=== PATIENT | male | born 1980 ===

== ENCOUNTER 2017-04-18 23:36 | Observation (INO) | payer OTHER ==
[2017-04-19 00:04] VITALS: RESP 16; O2SAT 100
[2017-04-19 00:04] LABS: BASO # 0.1 K/uL (0.0-0.2); BASO % 0.5 % (0.0-2.0); EOS % 0.2 % (0.0-4.0); HEMATOCRIT 43.5 % (35.0-51.0); LYMPH # 2.6 K/uL (1.0-4.3); LYMPH % 12.6 % (20.0-40.0); MEAN CELL VOLUME 93.5 fl (80.0-94.0); MEAN CORPUSCULAR HEMOGLOBIN 30.8 pg (27.0-31.0); MEAN PLATELET VOLUME 8.2 fl (7.2-11.7); MONO # 1.2 K/uL (0.0-0.8); MONO % 5.8 % (0.0-10.0); NEUT # 16.4 K/uL (1.8-7.0); NEUT % 80.9 % (50.0-75.0); NRBC % 0.1 % (0.0-0.0); RED CELL DISTRIBUTION WIDTH 14.4 % (11.5-14.5)
[2017-04-19 00:13] LABS: ALB/GLOB RATIO 1.6 (1.0-2.1); ALCOHOL SERUM 172 mg/dl (0-10); ALKALINE PHOSPHATASE 85 U/L (38-126); ALT/SGPT 41 U/L (21-72); AST/SGOT 33 U/L (17-59); BILIRUBIN,TOTAL 0.5 mg/dl (0.2-1.3); BLOOD UREA NITROGEN 11 mg/dl (9-20); CALCIUM 9.5 mg/dL (8.4-10.2); CARBON DIOXIDE 20 mmol/L (22-30); CHLORIDE 103 mmol/L (98-107); GFR AFRICAN-AMERICAN > 60; GLUCOSE,RANDOM 79 mg/dL (75-110); POTASSIUM 3.6 MMOL/L (3.6-5.0); SODIUM 138 mmol/l (132-148); TOTAL PROTEIN 7.7 G/DL (6.3-8.2)
--- NOTE | 2017-04-19 00:30 | ED PDOC ---
HPI: Psych/Substance Abuse Time Seen by Provider: 04/18/17 23:46 Chief Complaint (Nursing): Psychiatric Evaluation Chief Complaint (Provider): Alcohol intoxication ED Caveat: Intoxicated History Per: Patient History/Exam Limitations: intoxication Onset/Duration Of Symptoms: Days (x 1) Current Symptoms Are (Timing): Still Present Additional History Per: EMS Additional Complaint(s): Katt is a 36 y/o male who was brought to the ED by EMS after being found publicly intoxicated. Patient admits to alcohol use, and has no further medical complaints at this time. PMD: Unknown Past Medical History Reviewed: Historical Data, Nursing Documentation, Vital Signs Vital Signs: Last Vital Signs Temp Pulse 85 04/19/17 00:03 Resp 16 04/19/17 00:03 BP 135/80 04/19/17 00:03 Pulse Ox 100 04/19/17 00:03 - Medical History PMH: Denies: Diabetes, Hepatitis, HIV, HTN, Seizures, Sexually Transmitted Disease - Family History Family History: States: Unknown Family Hx - Immunization History Hx Tetanus Toxoid Vaccination: Yes Hx Influenza Vaccination: No Hx Pneumococcal Vaccination: No - Home Medications Home Medications: Ambulatory Orders Medication Instructions Recorded No Known Home Med 09/11/15 - Allergies Allergies/Adverse Reactions: Allergies Allergy/AdvReac Type Severity Reaction Status Date / Time Penicillins Allergy RASH Verified 07/24/16 08:49 Review of Systems Review Of Systems: ROS cannot be obtained secondary to pt's inabilty to answer questions. Physical Exam - Reviewed Nursing Documentation Reviewed: Yes Vital Signs Reviewed: Yes - Physical Exam Appears: Positive for: Non-toxic, No Acute Distress Head Exam: Positive for: ATRAUMATIC, NORMAL INSPECTION, NORMOCEPHALIC Skin: Positive for: Normal Color, Warm, Dry Eye Exam: Positive for: EOMI, Normal appearance, PERRL Neck: Positive for: Normal, Painless ROM, Supple Cardiovascular/Chest: Positive for: Regular Rate, Rhythm. Negative for: Murmur Respiratory: Positive for: Normal Breath Sounds. Negative for: Accessory Muscle Use, Respiratory Distress Gastrointestinal/Abdominal: Positive for: Normal Exam, Soft. Negative for: Tenderness Back: Positive for: Normal Inspection. Negative for: L CVA Tenderness, R CVA Tenderness, Vertebral Tenderness Extremity: Positive for: Normal ROM. Negative for: Deformity Neurologic/Psych: Positive for: Oriented (x 1), Mood/Affect (Colorful), Other ( speech is slurred) - Laboratory Results Result Diagrams: 04/18/17 23:58 04/18/17 23:58 - ECG O2 Sat by Pulse Oximetry: 100 (RA) Pulse Ox Interpretation: Normal - Critical Care Total Time (In Min): 30 Medical Decision Making Medical Decision Making: Time: 23:46 Initial Impression: 36 y/o intoxicated male Initial Plan: --Accucheck --CBC --CMP --Urine drug screen --Alcohol serum --Urine dipstick --Patient uncooperative and agitated in the ED --Given Haldol and Ativan Time: 00:23 --Placed on ED-OBS for alcohol intoxication *See ED-OBS tab for further documentation Scribe Attestation: Documented by Vicki Nesbitt, acting as a scribe for Curt Camejo MD Provider Scribe Attestation: All medical record entries made by the Scribe were at my direction and personally dictated by me. I have reviewed the chart and agree that the record accurately reflects my personal performance of the history, physical exam, medical decision making, and the department course for this patient. I have also personally directed, reviewed, and agree with the discharge instructions and disposition. ED OBSERVATION Date of observation admission: 04/19/17 Time of observation admission: 00:23 - Observation admission statement Patient is being placed in observation because:: Alcohol intoxication - Goals of Observation Goals of observation are:: Clinical sobriety - Progress Note Progress Note: 04/19/17 Time: 00:23 --Patient resting. Vital signs stable. Time: 00:32 --High risk for self/staff injury, and elopement --Patient necessitating 4 point restraints --Placed on 1:1 observation Time: 02:00 --Patient continues to rest. Vital signs stable. Time: 03:30 --Patient is resting. Vital signs stable. Time: 05:00 --Patient continues to rest. Vital signs stable. Time: 05:30 --Patient is ambulating in the ED and speaking in full sentences. Requesting to go home. --Patient appears clinically sober and is medically stable for discharge. Clinical Impression: Alcohol intoxication Disposition - Clinical Impression Clinical Impression: Alcohol intoxication, Cocaine abuse - Patient ED Disposition Is Patient to be Admitted: No Counseled Patient/Family Regarding: Diagnosis, Need For Followup - Disposition Disposition: Routine/Home Disposition Time: 00:23 Condition: STABLE Forms: [employer] (Andorran)
[2017-04-19 01:42] LABS: WHITE BLOOD COUNT 20.3 K/uL (4.8-10.8)
[2017-04-19 05:29] VITALS: BP 125/80; PULSE 83
== END 2017-04-19 05:31 | disposition home or self-care (01) ==
LOC: H.ER 23:36 → H.EROBSV 04-19 00:23
PROVIDERS: ADMIT Emergency Medicine; ATTEND Emergency Medicine
DX: F10.129 Alcohol abuse with intoxication, unspecified (principal); F14.10 Cocaine abuse, uncomplicated; Y90.6 Blood alcohol level of 120-199 mg/100 ml
CPT/HCPCS: 80053; 80320; 80324; 80345; 80346; 80349; 80353; 80358; 80361; 83992; 85025; 96372; 99284; G0378; J1630; J2060

== ENCOUNTER 2017-12-01 23:26 | Emergency (ER) | payer SELFPAY ==
[2017-12-01 23:35] VITALS: BP 121/65; PULSE 108; RESP 18; TEMP 98.4; O2SAT 98
== END 2017-12-01 23:58 | disposition left against medical advice (07) ==
LOC: H.ER 23:26
DX: Z02.89 Encounter for other administrative examinations (principal)

== ENCOUNTER 2017-12-10 23:55 | Emergency (ER) | payer SELFPAY ==
[2017-12-11 00:11] VITALS: RESP 16
--- NOTE | 2017-12-11 00:37 | ED PDOC ---
HPI: Psych/Substance Abuse Time Seen by Provider: 12/11/17 00:18 Chief Complaint (Nursing): Medical Clearance Chief Complaint (Provider): medical/psych clearance History Per: Other (PD) Additional Complaint(s): 37 y/o male history of schizophrenia (noncompliant with meds) here in police custody for medical and psychiatric clearance for incarceration. Patient intoxicated, admits to drinking tonight. Patient states he is not feeling well and feels like he is about ot "lose control". As per police, patient was banging head against cell doors. HPI limited due to patients current states of intoxication/agitation. Past Medical History Reviewed: Historical Data, Nursing Documentation, Vital Signs Vital Signs: Last Vital Signs Temp 99.6 F 12/11/17 00:09 Pulse 87 12/11/17 00:09 Resp 16 12/11/17 00:09 BP Pulse Ox 100 12/11/17 00:09 - Medical History PMH: Schizophrenia Denies: Diabetes, Hepatitis, HIV, HTN, Seizures, Sexually Transmitted Disease - Surgical History Surgical History: No Surg Hx - Family History Family History: States: Unknown Family Hx - Immunization History Hx Tetanus Toxoid Vaccination: Yes Hx Influenza Vaccination: No Hx Pneumococcal Vaccination: No - Home Medications Home Medications: Ambulatory Orders Medication Instructions Recorded No Known Home Med 09/11/15 - Allergies Allergies/Adverse Reactions: Allergies Allergy/AdvReac Type Severity Reaction Status Date / Time Penicillins Allergy RASH Verified 07/24/16 08:49 Review of Systems ROS Statement: Except As Marked, All Systems Reviewed And Found Negative Psych: Positive for: Psychosis Physical Exam - Reviewed Nursing Documentation Reviewed: Yes Vital Signs Reviewed: Yes - Physical Exam Appears: Positive for: Well, Non-toxic, Uncomfortable (agitated) Head Exam: Positive for: NORMAL INSPECTION, NORMOCEPHALIC. Negative for: ATRAUMATIC (frontal scalp contusions) Skin: Positive for: Normal Color Eye Exam: Positive for: Normal appearance, EOMI, PERRL ENT: Positive for: Normal ENT Inspection Cardiovascular/Chest: Positive for: Regular Rate, Rhythm Respiratory: Positive for: Normal Breath Sounds Gastrointestinal/Abdominal: Positive for: Normal Exam Back: Positive for: Normal Inspection Extremity: Positive for: Normal ROM Neurologic/Psych: Positive for: Alert, Oriented - Laboratory Results Result Diagrams: 12/11/17 00:58 12/11/17 00:58 - ECG O2 Sat by Pulse Oximetry: 100 - Progress ED Course And Treament: acuccheck, labs, CT head Patient agitated, yelling/cursing Patient unwilling to comply with alternative measures offered, medicated with Ativan IM and Haldol IM for acute agitation EXAM: CT Head Without Intravenous Contrast CLINICAL HISTORY: 37 years old, male; Injury or trauma; Fall; Initial encounter; Blunt trauma ( contusions or hematomas); Additional info: ETOH, head injury TECHNIQUE: Axial computed tomography images of the head/brain without intravenous contrast. All CT scans at this facility use one or more dose reduction techniques, viz.: automated exposure control; ma/kV adjustment per patient size (including targeted exams where dose is matched to indication; i.e. head); or iterative reconstruction technique. Coronal and sagittal reformatted images were created and reviewed. COMPARISON: No relevant prior studies available. FINDINGS: Brain: No intracranial hemorrhage. No mass. No edema. Ventricles: No hydrocephalus. Bones/joints: No calvarial fracture. Right nasal bone fracture, likely chronic. Soft tissues: Mild scalp swelling. Sinuses: No acute sinusitis. Mastoid air cells: No mastoid effusion. Orbits: Unremarkable as visualized. IMPRESSION: 1. No intracranial hemorrhage. 2. Incidental/non-acute findings are described above. 2:30 On re-eval, patient sleeping; vitals stable on monitor 4:00 On re-eval, patient sleeping; vitals stable on monitor 5:30 Patient awake, alert, oriented x3. Patient evaluated by quarry worker and cleared for discharge as per Dr. Farmer Disposition - Clinical Impression Clinical Impression: Polysubstance abuse, Adjustment disorder, Head injury - Patient ED Disposition Is Patient to be Admitted: No Counseled Patient/Family Regarding: Studies Performed, Diagnosis, Need For Followup - Disposition Disposition: Discharged/Transfer to Law Enforcement Disposition Time: 05:45 Condition: STABLE Additional Instructions: Patient medically and psychiatrically cleared for incarceration Instructions: Adjustment Disorder, Closed Head Injury, Drug Abuse and Drug Addiction (DC) Print Language: BAHAMIAN
[2017-12-11 01:16] LABS: BASO # 0.1 K/uL (0.0-0.2); BASO % 0.4 % (0.0-2.0); EOS % 0.1 % (0.0-4.0); LYMPH # 2.4 K/uL (1.0-4.3); LYMPH % 19.2 % (20.0-40.0); MEAN CELL VOLUME 94.7 fl (80.0-94.0); MEAN CORPUSCULAR HEMOGLOBIN 31.6 pg (27.0-31.0); MEAN CORPUSCULAR HGB CONC 33.3 g/dL (33.0-37.0); MEAN PLATELET VOLUME 7.8 fl (7.2-11.7); MONO # 0.7 K/uL (0.0-0.8); MONO % 5.2 % (0.0-10.0); NEUT # 9.4 K/uL (1.8-7.0); NEUT % 75.1 % (50.0-75.0); RBC 4.43 Mil/uL (4.40-5.90); RED CELL DISTRIBUTION WIDTH 14.4 % (11.5-14.5); WHITE BLOOD COUNT 12.5 K/uL (4.8-10.8)
[2017-12-11 01:24] LABS: ALB/GLOB RATIO 1.5 (1.0-2.1); ALBUMIN 4.5 g/dL (3.5-5.0); ALT/SGPT 42 U/L (21-72); AST/SGOT 59 U/L (17-59); BLOOD UREA NITROGEN 16 mg/dl (9-20); CALCIUM 9.3 mg/dL (8.4-10.2); GFR AFRICAN-AMERICAN > 60; GFR NON-AFRICAN AMERICAN > 60
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
[2017-12-11 03:04] VITALS: O2SAT 100
[2017-12-11 03:12] LABS: BARBITURATES, UR NEGATIVE (NEGATIVE); BENZODIAZEPINES, UR NEGATIVE (NEGATIVE); OPIATES, UR NEGATIVE (NEGATIVE); PHENCYCLIDINE, UR NEGATIVE (NEGATIVE)
[2017-12-11 05:55] VITALS: BP 107/68; PULSE 71; TEMP 98
== END 2017-12-11 05:55 ==
LOC: H.ER 23:55
DX: F19.20 Other psychoactive substance dependence, uncomplicated (principal); S09.90XA Unspecified injury of head, initial encounter; W22.8XXA Striking against or struck by other objects, initial encounter; Y92.248 Other public administrative building as the place of occurrence of the external cause; F20.9 Schizophrenia, unspecified; F43.20 Adjustment disorder, unspecified; Z88.0 Allergy status to penicillin; Z91.14 Patient's other noncompliance with medication regimen
CPT/HCPCS: 70450; 80053; 82948; 85025; 96372; 99283; G0480; J1630; J2060

== ENCOUNTER 2018-01-24 18:16 | Emergency (ER) | payer OTHER ==
[2018-01-24 18:21] VITALS: BP 116/59; PULSE 105; RESP 20; TEMP 99; O2SAT 99
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
--- NOTE | 2018-01-24 19:38 | ED PDOC ---
- Laboratory Results Result Diagrams: 01/24/18 20:33 01/24/18 20:33 - ECG O2 Sat by Pulse Oximetry: 99 (ra) Pulse Ox Interpretation: Normal Medical Decision Making Medical Decision Making: Patient signed out to me by Dr. Up @ 19:00, pending labs and psychiatric evaluation Patient is cleared for discharge by Dr Jean. Scribe Attestation: Documented by Erick Bolton, acting as a scribe for Ananth Cardenas MD. Provider Scribe Attestation: All medical record entries made by the Scribe were at my direction and personally dictated by me. I have reviewed the chart and agree that the record accurately reflects my personal performance of the history, physical exam, medical decision making, and the department course for this patient. I have also personally directed, reviewed, and agree with the discharge instructions and disposition. Disposition Doctor Will See Patient In The: Office Counseled Patient/Family Regarding: Studies Performed, Diagnosis, Need For Followup - Clinical Impression Clinical Impression: Polysubstance abuse - POA Present On Arrival: None - Disposition Referrals: [facility] [Outside] Disposition: Routine/Home Disposition Time: 21:09 Condition: GOOD Additional Instructions: Patient is medically and psychiatrically cleared for incarceration Instructions: Polysubstance Abuse
[2018-01-24 19:56] LABS: BARBITURATES, UR NEGATIVE (NEGATIVE); BENZODIAZEPINES, UR NEGATIVE (NEGATIVE); OPIATES, UR NEGATIVE (NEGATIVE); PHENCYCLIDINE, UR NEGATIVE (NEGATIVE)
[2018-01-24 20:35] LABS: BASO % 0.4 % (0.0-2.0); EOS % 0.2 % (0.0-4.0); HEMOGLOBIN 14.3 g/dL (12.0-18.0); LYMPH % 16.1 % (20.0-40.0); MEAN CELL VOLUME 95.6 fl (80.0-94.0); MEAN CORPUSCULAR HEMOGLOBIN 31.7 pg (27.0-31.0); MEAN CORPUSCULAR HGB CONC 33.1 g/dL (33.0-37.0); MONO # 0.5 K/uL (0.0-0.8); MONO % 4.1 % (0.0-10.0); NEUT # 9.6 K/uL (1.8-7.0); NEUT % 79.2 % (50.0-75.0); RBC 4.51 Mil/uL (4.40-5.90); RED CELL DISTRIBUTION WIDTH 14.4 % (11.5-14.5); WHITE BLOOD COUNT 12.2 K/uL (4.8-10.8)
[2018-01-24 20:47] LABS: BLOOD UREA NITROGEN 8 mg/dl (9-20); CALCIUM 8.9 mg/dL (8.4-10.2); GFR AFRICAN-AMERICAN > 60; GFR NON-AFRICAN AMERICAN > 60
--- NOTE | 2018-01-26 12:15 | CARD ---
APPROVED REPORT EKG Measurement Heart [id number] <Conclusion> Normal sinus rhythm Possible Left atrial enlargement Borderline ECG
== END 2018-01-24 21:41 ==
LOC: H.ER 18:16
DX: F19.129 Other psychoactive substance abuse with intoxication, unspecified (principal); F14.10 Cocaine abuse, uncomplicated

== ENCOUNTER 2018-02-28 19:46 | Emergency (ER) | payer OTHER ==
[2018-02-28 20:18] VITALS: O2SAT 99
[2018-02-28] MEDS ORDERED: Albuterol-Ipratrop 3 mg / 0.5 (3 ml) UD IH STA (21:25)
--- NOTE | 2018-02-28 21:40 | ED PDOC ---
HPI: CCC, URI, Sore Throat Time Seen by Provider: 02/28/18 21:20 Chief Complaint (Nursing): Cough, Cold, Congestion Chief Complaint (Provider): cough History Per: Patient History/Exam Limitations: no limitations Onset/Duration Of Symptoms: Days Current Symptoms Are (Timing): Still Present Additional Complaint(s): 37 year old male presents to the ED for an evaluation of cough. Reports the cough is dry with nasal congestion and tactile fever. Otherwise: (-) chills, (- ) chest pain, (-) dyspnea, (-) hemoptysis, (-) upper back pain, (-) travel, (-) recent prolonged immobility. PMD: Non [facility] Provider Past Medical History Reviewed: Historical Data, Nursing Documentation, Vital Signs Vital Signs: Last Vital Signs Temp 99.1 F 02/28/18 20:16 Pulse 76 02/28/18 20:16 Resp 16 02/28/18 20:16 BP 131/59 L 02/28/18 20:16 Pulse Ox 99 02/28/18 21:43 - Medical History PMH: Schizophrenia Denies: Diabetes, Hepatitis, HIV, HTN, Seizures, Sexually Transmitted Disease - Family History Family History: States: Unknown Family Hx - Immunization History Hx Tetanus Toxoid Vaccination: Yes Hx Influenza Vaccination: No Hx Pneumococcal Vaccination: No - Home Medications Home Medications: Ambulatory Orders Medication Instructions Recorded Albuterol 0.083% [Albuterol 3 ml IH Q4 #100 neb 02/28/18 Sulfate 3 Ml] Azithromycin [Z-Jong] 250 mg PO DAILY #6 tab 02/28/18 Guaifenesin [Adult Tussin Chest 200 mg PO Q6H PRN #200 ml 02/28/18 Congestion] Nebulizer [Aeroeclipse II] 1 each MC DAILY #1 each 02/28/18 - Allergies Allergies/Adverse Reactions: Allergies Allergy/AdvReac Type Severity Reaction Status Date / Time Penicillins Allergy RASH Verified 01/24/18 18:18 Review of Systems ROS Statement: Except As Marked, All Systems Reviewed And Found Negative Constitutional: Positive for: Fever. Negative for: Chills ENT: Positive for: Nose Congestion Cardiovascular: Negative for: Chest Pain Respiratory: Positive for: Cough. Negative for: Shortness of Breath Musculoskeletal: Negative for: Back Pain Physical Exam - Reviewed Nursing Documentation Reviewed: Yes Vital Signs Reviewed: Yes - Physical Exam Comments: GENERAL APPEARANCE: Patient is awake, alert, oriented x 3, in no acute distress. SKIN: Warm, dry; (-) cyanosis. EYES: (-) conjunctival pallor. ENMT: Mucous membranes moist. Airway patent: (-) stridor. Pharynx: (-) swelling, (-) erythema, (-) exudate. NECK: (-) tenderness, (-) stiffness, (-) lymphadenopathy. CHEST AND RESPIRATORY: (-) rhonchi, (-) rales, (-) wheezes, (-) pleural rub; breath sounds equal bilaterally. HEART AND CARDIOVASCULAR: (-) irregularity; (-) murmur, (-) gallop. ABDOMEN AND GI: Soft; (-) tenderness. EXTREMITIES: (-) deformity; (-) edema. NEURO AND PSYCH: Mental status as above. Cranial nerves grossly intact; strength symmetric. - ECG O2 Sat by Pulse Oximetry: 99 (RA) Pulse Ox Interpretation: Normal Medical Decision Making Medical Decision Making: Time: 2124 Initial Impression: URI Symptoms Initial Plan: --Chest Two Views (PALAT) [RAD] --Duoneb 3mg/0.5mg (3ml) --Nebulizer Treatment [RT] CXR : NAD, as read by LOERNA. On reevaluation, patient reports improvement of symptoms, denies any SOB or chest pain. On exam, patient remains awake alert and oriented 3 in no acute distress. Neck is supple, lungs are clear to auscultation, cardiac regular rate and rhythm, repeat neuro exam shows no focal findings. Advised to follow up with the clinic in 1-2 days without fail. Advised to take medication as prescribed. Return to the emergency room at any time for any new or worsening symptoms. Patient states he fully agrees with and understands discharge instructions. States that he agrees with the plan and disposition. Verbalized and repeated discharge instructions and plan. I have given the patient opportunity to ask any additional questions. Scribe Attestation: Documented by Kleber Álvarez, acting as a scribe for Ani Sorto PA-C Provider Scribe Attestation: All medical record entries made by the Scribe were at my direction and personally dictated by me. I have reviewed the chart and agree that the record accurately reflects my personal performance of the history, physical exam, medical decision making, and the department course for this patient. I have also personally directed, reviewed, and agree with the discharge instructions and disposition. Disposition - Clinical Impression Clinical Impression: Bronchitis - Patient ED Disposition Is Patient to be Admitted: No Counseled Patient/Family Regarding: Studies Performed, Diagnosis, Need For Followup, Rx Given - Disposition Referrals: [facility] [Outside] Disposition: Routine/Home Disposition Time: 23:00 Condition: STABLE Additional Instructions: Thank you for letting us take care of you today. You were treated for acute bronchitis. The emergency medical care you received today was directed at your acute symptoms. If you were prescribed any medication, please fill it and take as directed. It may take several days for your symptoms to resolve. Return to the Emergency Department if your symptoms worsen, do not improve, or if you have any other problems. Please call one of the physicians/clinics you have been referred to that are listed on the Patient Visit Information form that is included in your discharge packet. Bring any paperwork you were given at discharge with you along with any medications you are taking to your follow up visit. Our treatment cannot replace ongoing medical care by a primary care provider (PCP) outside of the emergency department. Thank you for allowing the its learning team to be part of your care today. If you had an X-Ray : A Radiologist will review the ED reading if any change in treatment is needed we will contact you. Prescriptions: Albuterol 0.083% [Albuterol Sulfate 3 Ml] 3 ml IH Q4 #100 neb Azithromycin [Z-Jong] 250 mg PO DAILY #6 tab Guaifenesin [Adult Tussin Chest Congestion] 200 mg PO Q6H PRN #200 ml PRN Reason: Cough Nebulizer [Aeroeclipse II] 1 each MC DAILY #1 each Instructions: Acute Bronchitis Forms: [employer] (Croatian), [facility] ED School/Work Excuse - PA / [employer]IC / Resident Statement MD/DO has reviewed & agrees with the documentation as recorded.
[2018-02-28] MEDS ORDERED: Albuterol-Ipratrop 3 mg / 0.5 (3 ml) UD ONE (21:44)
[2018-02-28 23:21] VITALS: BP 122/72; PULSE 78; RESP 18; TEMP 98
--- NOTE | 2018-03-01 14:21 | RAD ---
Date of service: 02/28/2018 HISTORY: cough COMPARISON: No prior. TECHNIQUE: Chest PA and lateral FINDINGS: LUNGS: No active pulmonary disease. PLEURA: No significant pleural effusion identified. No pneumothorax apparent. CARDIOVASCULAR: Normal. OSSEOUS STRUCTURES: No significant abnormalities. VISUALIZED UPPER ABDOMEN: Normal. OTHER FINDINGS: None. IMPRESSION: No active disease.
== END 2018-02-28 23:20 | disposition home or self-care (01) ==
LOC: H.ER 19:46
DX: J40 Bronchitis, not specified as acute or chronic (principal); F20.9 Schizophrenia, unspecified

== ENCOUNTER 2018-03-08 15:18 | Emergency (ER) | payer SELFPAY ==
[2018-03-08 15:24] VITALS: BP 124/75; PULSE 73; RESP 16; TEMP 98.5; O2SAT 100
[2018-03-08] MEDS ORDERED: Tdap Vaccine 0.5 ml Vial (10-64 yrs) IM ONE ×2 (15:34→16:09)
--- NOTE | 2018-03-08 15:51 | ED PDOC ---
Upper Extremity Pain/Injury Time Seen by Provider: 03/08/18 15:25 Chief Complaint (Nursing): Finger,Hand,&Wrist Chief Complaint (Provider): Left 4th Digit Pain History Per: Patient History/Exam Limitations: no limitations Onset/Duration Of Symptoms: Days (x5) Current Symptoms Are (Timing): Still Present Additional Complaint(s): 37 y/o male with no significant PMHX presenting for evaluation of left 4th digit pain x5 days. Patient states 5 days ago a heavy piece of wood fell on his left 4th digit. He reports he has since had progressively worsening pain and the nail is now coming off. Tetanus is not UTD. PMD: None Past Medical History Reviewed: Historical Data, Nursing Documentation, Vital Signs Vital Signs: Last Vital Signs Temp 98.5 F 03/08/18 15:21 Pulse 73 03/08/18 15:21 Resp 16 03/08/18 15:21 BP 124/75 03/08/18 15:21 Pulse Ox 100 03/08/18 15:21 - Medical History PMH: Schizophrenia Denies: Diabetes, Hepatitis, HIV, HTN, Seizures, Sexually Transmitted Disease - Surgical History Surgical History: No Surg Hx - Family History Family History: States: Unknown Family Hx - Immunization History Hx Tetanus Toxoid Vaccination: No Hx Influenza Vaccination: No Hx Pneumococcal Vaccination: No - Home Medications Home Medications: Ambulatory Orders Medication Instructions Recorded Albuterol 0.083% [Albuterol 3 ml IH Q4 #100 neb 02/28/18 Sulfate 3 Ml] Azithromycin [Z-Jong] 250 mg PO DAILY #6 tab 02/28/18 Guaifenesin [Adult Tussin Chest 200 mg PO Q6H PRN #200 ml 02/28/18 Congestion] Nebulizer [Aeroeclipse II] 1 each MC DAILY #1 each 02/28/18 - Allergies Allergies/Adverse Reactions: Allergies Allergy/AdvReac Type Severity Reaction Status Date / Time Penicillins Allergy RASH Verified 01/24/18 18:18 Review of Systems ROS Statement: Except As Marked, All Systems Reviewed And Found Negative Musculoskeletal: Positive for: Hand Pain (left 4th digit) Physical Exam - Reviewed Nursing Documentation Reviewed: Yes Vital Signs Reviewed: Yes - Physical Exam Appears: Positive for: Non-toxic, No Acute Distress Extremity: Positive for: Other (left 4th digit with mild swelling and tenderness , nail is lifted from the nailbed but is attached to the cuticle area, no paronychia) Neurologic/Psych: Positive for: Alert, Oriented (x3) - ECG O2 Sat by Pulse Oximetry: 100 (RA) Pulse Ox Interpretation: Normal Medical Decision Making Medical Decision Makin:34 Plan: -Tetanus -X-ray left hand 4th digit -Reevaluation Scribe Attestation: Documented by Andre Rosado, acting as a scribe for Prasanth Gilbert PA-C. Provider Scribe Attestation: All medical record entries made by the scribe were at my direction and personally dictated by me. I have reviewed the chart and agree that the record accurately reflects my personal performance of the history, physical exam, medical decision making, and the department course for this patient. I have also personally directed, reviewed, and agree with the discharge instructions and disposition. Procedures - Time-Out Type of Procedure: Removal of nail Site of Procedure: L 4th digit PA/Jenna: Vladimir - Additional Procedures Progress: Lidocaine instilled into finger for digital nerve block. Nail was removed from cuticle without difficulty. Disposition - Clinical Impression Clinical Impression: Nail avulsion - Patient ED Disposition Is Patient to be Admitted: No - Disposition Referrals: [facility] [Outside] Disposition: Routine/Home Disposition Time: 16:40 Condition: IMPROVED Additional Instructions: JUAN FRANCISCO ABURTO, thank you for letting us take care of you today. Your provider was Marina Esparza MD and you were treated for FINGER INJURY. The emergency medical care you received today was directed at your acute symptoms. If you were prescribed any medication, please fill it and take as directed. It may take several days for your symptoms to resolve. Return to the Emergency Department if your symptoms worsen, do not improve, or if you have any other problems. Please contact your doctor or call one of the physicians/clinics you have been referred to that are listed on the Patient Visit Information form that is included in your discharge packet. Bring any paperwork you were given at discharge with you along with any medications you are taking to your follow up visit. Our treatment cannot replace ongoing medical care by a primary care provider outside of the emergency department. Thank you for allowing the [facility] team to be part of your care today. If you had an X-Ray or CT scan: A Radiologist will review the ED reading if any change in treatment is needed we will contact you. If you had a blood, urine, or wound culture: It will take several days for the results, if any change in treatment is needed we will contact you. If you had an STI test: It will take 48 hours for the results. Please call after 1 week if you have not heard back. Instructions: Nail Avulsion (DC) Forms: [employer] (Turkish) Print Language: MONGOLIAN
[2018-03-08] MEDS ORDERED: Lidocaine 1% (10 ml) Inj INFIL ONE (16:20)
[2018-03-08] MEDS ORDERED: Lidocaine 1% 20 MG/2 ML PF AMP ONE ×2 (16:27→16:28)
--- NOTE | 2018-03-08 17:17 | RAD ---
Date of service: 03/08/2018 PROCEDURE: Left ring finger radiographs. HISTORY: trauma COMPARISON: None. TECHNIQUE: AP radiograph of the left hand, as well as spot oblique and lateral images of left ring finger were obtained. FINDINGS: LEFT RING FINGER: No acute fracture. The 4th fingernail is noted elevated from the underlying distal phalanx. Remainder of the left hand (as seen on the AP view) is grossly unremarkable. JOINTS: Normal. SOFT TISSUES: Normal. OTHER FINDINGS: None. IMPRESSION: No acute fracture.
== END 2018-03-08 17:00 | disposition home or self-care (01) ==
LOC: H.ER 15:18
DX: S69.92XA Unspecified injury of left wrist, hand and finger(s), initial encounter (principal); Z86.59 Personal history of other mental and behavioral disorders; Z23 Encounter for immunization; Z88.0 Allergy status to penicillin

== ENCOUNTER 2018-03-19 10:39 | Emergency (ER) | payer SELFPAY ==
[2018-03-19 10:52] VITALS: TEMP 98.4; O2SAT 98
--- NOTE | 2018-03-19 12:03 | ED PDOC ---
HPI: Skin/Bite Injury Time Seen by Provider: 03/19/18 11:20 Chief Complaint (Nursing): Abnormal Skin Integrity History Per: Patient History/Exam Limitations: no limitations Additional Complaint(s): 37-year-old male complaining of an abrasion to left flank which he sustained last night when he was walking and he fell hitting his left flank on a wall. Reports no head injury, LOC, neck pain, back pain, abdominal pain, back pain, flank pain, or any other injury. Reports that his tetanus is up-to-date. Past Medical History Vital Signs: Last Vital Signs Temp 98.4 F 03/19/18 10:51 Pulse 85 03/19/18 10:51 Resp 17 03/19/18 10:51 BP 116/66 03/19/18 10:51 Pulse Ox 98 03/19/18 10:51 - Medical History PMH: Schizophrenia Denies: Diabetes, Hepatitis, HIV, HTN, Seizures, Sexually Transmitted Disease - Surgical History Surgical History: No Surg Hx - Family History Family History: States: Unknown Family Hx - Immunization History Hx Tetanus Toxoid Vaccination: No Hx Influenza Vaccination: No Hx Pneumococcal Vaccination: No - Home Medications Home Medications: Ambulatory Orders Medication Instructions Recorded Albuterol 0.083% [Albuterol 3 ml IH Q4 #100 neb 02/28/18 Sulfate 3 Ml] Azithromycin [Z-Jong] 250 mg PO DAILY #6 tab 02/28/18 Guaifenesin [Adult Tussin Chest 200 mg PO Q6H PRN #200 ml 02/28/18 Congestion] Nebulizer [Aeroeclipse II] 1 each MC DAILY #1 each 02/28/18 - Allergies Allergies/Adverse Reactions: Allergies Allergy/AdvReac Type Severity Reaction Status Date / Time Penicillins Allergy RASH Verified 01/24/18 18:18 Review of Systems Constitutional: Negative for: Fever, Malaise Cardiovascular: Negative for: Chest Pain, Palpitations, Edema Respiratory: Negative for: Cough, Shortness of Breath Gastrointestinal: Negative for: Nausea, Vomiting, Abdominal Pain, Diarrhea Genitourinary Male: Negative for: Dysuria, Frequency, Hematuria Musculoskeletal: Negative for: Neck Pain, Back Pain Skin: Positive for: Other (Abrasion to the left flank). Negative for: Rash Neurological: Negative for: Headache, Dizziness Physical Exam - Reviewed Vital Signs Reviewed: Yes - Physical Exam Appears: Positive for: Well, Non-toxic, No Acute Distress Head Exam: Positive for: ATRAUMATIC, NORMAL INSPECTION, NORMOCEPHALIC Skin: Positive for: Normal Color, Warm, DRY Eye Exam: Positive for: Normal appearance, EOMI, PERRL ENT: Positive for: Normal ENT Inspection Neck: Positive for: Normal, Painless ROM Cardiovascular/Chest: Positive for: Regular Rate, Rhythm Respiratory: Positive for: CNT, Normal Breath Sounds Gastrointestinal/Abdominal: Positive for: Normal Exam, Soft, Other (No flank tenderness). Negative for: Tenderness Back: Positive for: Normal Inspection. Negative for: L CVA Tenderness, R CVA Tenderness, Vertebral Tenderness Extremity: Positive for: Normal ROM Neurologic/Psych: Positive for: Alert, comb fixer II-XII (Intact), Oriented. Negative for: Motor/Sensory Deficits - ECG O2 Sat by Pulse Oximetry: 98 Medical Decision Making Medical Decision Making: Plan : - keflex - clean and dress wound Advised to follow up with the clinic in 1-2 days without fail. Instructed on proper wound care. Advised to take medication as prescribed. Return to the emergency room at any time for any new or worsening symptoms. Patient states he fully agrees with and understands discharge instructions. States that he agrees with the plan and disposition. Verbalized and repeated discharge instructions and plan. I have given the patient opportunity to ask any additional questions. Disposition - Clinical Impression Clinical Impression: Abrasion - Patient ED Disposition Is Patient to be Admitted: No Counseled Patient/Family Regarding: Diagnosis, Need For Followup - Disposition Referrals: [facility] [Outside] Disposition: Routine/Home Disposition Time: 12:00 Condition: STABLE Additional Instructions: Thank you for letting us take care of you today. You were treated for abrasion. The emergency medical care you received today was directed at your acute symptoms. Clean wound daily with soap and water. If you were prescribed any medication, please fill it and take as directed. It may take several days for your symptoms to resolve. Return to the Emergency Department if your symptoms worsen, do not improve, or if you have any other problems. Please call one of the physicians/clinics you have been referred to that are listed on the Patient Visit Information form that is included in your discharge packet. Bring any paperwork you were given at discharge with you along with any medications you are taking to your follow up visit. Our treatment cannot replace ongoing medical care by a primary care provider (PCP) outside of the emergency department. Thank you for allowing the [facility] team to be part of your care today. Instructions: Wound Care - PA / PHARMACY ASSISTANT / Resident Statement MD/DO has reviewed & agrees with the documentation as recorded.
[2018-03-19 12:53] VITALS: BP 120/68; PULSE 82; RESP 18
== END 2018-03-19 12:49 | disposition home or self-care (01) ==
LOC: H.ER 10:39
DX: S30.811A Abrasion of abdominal wall, initial encounter (principal); W19.XXXA Unspecified fall, initial encounter; Y92.89 Other specified places as the place of occurrence of the external cause; Z88.0 Allergy status to penicillin

== ENCOUNTER 2018-03-29 18:44 | Emergency (ER) | payer SELFPAY ==
[2018-03-29 19:05] VITALS: BP 117/67; PULSE 83; RESP 18; TEMP 98.6; O2SAT 100
[2018-03-29] MEDS ORDERED: Naproxen 500 MG TAB PO STA (20:08)
--- NOTE | 2018-03-29 21:46 | ED PDOC ---
HPI: Dental Pain/Injury Time Seen by Provider: 03/29/18 19:44 Chief Complaint (Nursing): Dental Pain Chief Complaint (Provider): Left Lower Dental Pain History Per: Patient History/Exam Limitations: no limitations Onset/Duration Of Symptoms: Days (x3) Current Symptoms Are (Timing): Still Present Additional Complaint(s): 37-year-old male presenting for evaluation of left lower dental pain x3 days. Patient states he came to ER yesterday, but took Aspirin prior to arrival and left before being seen due to his pain subsiding. Patient states he is returning today because he is worried about the pain returning. He denies any fever or chills. He states he has no appointment with a dentist at this time. Past Medical History Reviewed: Historical Data, Nursing Documentation, Vital Signs Vital Signs: Last Vital Signs Temp 98.6 F 03/29/18 19:00 Pulse 83 03/29/18 19:00 Resp 18 03/29/18 19:00 BP 117/67 03/29/18 19:00 Pulse Ox 100 03/29/18 19:00 - Medical History PMH: Schizophrenia Denies: Diabetes, Hepatitis, HIV, HTN, Seizures, Sexually Transmitted Disease - Surgical History Surgical History: No Surg Hx - Family History Family History: States: Unknown Family Hx - Immunization History Hx Tetanus Toxoid Vaccination: No Hx Influenza Vaccination: No Hx Pneumococcal Vaccination: No - Home Medications Home Medications: Ambulatory Orders Medication Instructions Recorded Albuterol 0.083% [Albuterol 3 ml IH Q4 #100 neb 02/28/18 Sulfate 3 Ml] Azithromycin [Z-Jong] 250 mg PO DAILY #6 tab 02/28/18 Guaifenesin [Adult Tussin Chest 200 mg PO Q6H PRN #200 ml 02/28/18 Congestion] Nebulizer [Aeroeclipse II] 1 each MC DAILY #1 each 02/28/18 Cephalexin [Keflex] 500 mg PO Q6 #28 capsule 03/19/18 Clindamycin [Cleocin] 300 mg PO QID #40 cap 03/29/18 Zinc Oxide 11.3% [Balmex 11.3%] 5 applic TP BID #1 tube 03/29/18 - Allergies Allergies/Adverse Reactions: Allergies Allergy/AdvReac Type Severity Reaction Status Date / Time Penicillins Allergy RASH Verified 03/29/18 19:00 Review of Systems ROS Statement: Except As Marked, All Systems Reviewed And Found Negative Constitutional: Negative for: Fever, Chills ENT: Positive for: Mouth Pain (left lower dental pain) Physical Exam - Reviewed Nursing Documentation Reviewed: Yes Vital Signs Reviewed: Yes - Physical Exam Appears: Positive for: Non-toxic, No Acute Distress Head Exam: Positive for: ATRAUMATIC Skin: Positive for: Normal Color, Warm Eye Exam: Positive for: Normal appearance ENT: Positive for: Other (dental decay to left lower mouth) Neck: Positive for: Normal (no cervical LAD) Respiratory: Negative for: Respiratory Distress Neurologic/Psych: Positive for: Alert - ECG O2 Sat by Pulse Oximetry: 100 (RA) Pulse Ox Interpretation: Normal Medical Decision Making Medical Decision Making: Plan: -Naproxen 500mg PO Patient was asking for cream to help protect his skin due to a prior nail avulsion. Scribe Attestation: Documented by Andre Rosado, acting as a scribe for Cindy Kraus PA-C. Provider Scribe Attestation: All medical record entries made by the scribe were at my direction and personally dictated by me. I have reviewed the chart and agree that the record accurately reflects my personal performance of the history, physical exam, medical decision making, and the department course for this patient. I have also personally directed, reviewed, and agree with the discharge instructions and disposition. Disposition - Clinical Impression Clinical Impression: Pain, dental - Patient ED Disposition Is Patient to be Admitted: No Counseled Patient/Family Regarding: Need For Followup, Rx Given - Disposition Referrals: [facility] [Outside] Disposition: Routine/Home Disposition Time: 20:15 Condition: STABLE Prescriptions: Clindamycin [Cleocin] 300 mg PO QID #40 cap Zinc Oxide 11.3% [Balmex 11.3%] 5 applic TP BID #1 tube Instructions: Dental Pain (DC) Forms: [employer] (Danish) Print Language: GABONESE
== END 2018-03-29 21:05 | disposition home or self-care (01) ==
LOC: H.ER 18:44
DX: K08.89 Other specified disorders of teeth and supporting structures (principal); F20.9 Schizophrenia, unspecified; Z88.0 Allergy status to penicillin

== ENCOUNTER 2018-04-20 13:32 | Emergency (ER) | payer SELFPAY ==
[2018-04-20 14:34] LABS: SQUAMOUS EPITHIAL 1 /hpf (0-5); URINE BACTERIA RARE (<OCC); URINE BILIRUBIN NEGATIVE (NEGATIVE); URINE BLOOD NEGATIVE (NEGATIVE); URINE CLARITY TURBID (Clear); URINE COLOR AMBER (YELLOW); URINE GLUCOSE (UA) NEG (Normal); URINE LEUKOCYTE ESTERASE LARGE Leu/uL (Negative); URINE PROTEIN 100 mg/dL (NEGATIVE); WBC CLUMPS MOD /hpf
--- NOTE | 2018-04-20 15:27 | ED PDOC ---
HPI: Male Pain Time Seen by Provider: 04/20/18 13:56 Chief Complaint (Nursing): Male Genitourinary Chief Complaint (Provider): Discharge from penis History Per: Patient History/Exam Limitations: no limitations Onset/Duration Of Symptoms: Days Current Symptoms Are (Timing): Still Present Additional Complaint(s): 37 yo male with no medical problems presents for evaluation of discharge from penis. PT states he had unprotected sex 3-4 weeks ago. Pt denies fever/chills. No pain in the testicles or penis. No N/V Past Medical History Reviewed: Historical Data, Nursing Documentation, Vital Signs Vital Signs: Last Vital Signs Temp 98.1 F 04/20/18 13:39 Pulse 68 04/20/18 13:39 Resp 16 04/20/18 13:39 BP 106/67 04/20/18 13:39 Pulse Ox 100 04/20/18 13:39 - Medical History PMH: Schizophrenia Denies: Diabetes, Hepatitis, HIV, HTN, Seizures, Sexually Transmitted Disease - Surgical History Surgical History: No Surg Hx - Family History Family History: States: Unknown Family Hx - Living Arrangements Living Arrangements: With Family - Social History Current smoker - smoking cessation education provided: No - Immunization History Hx Tetanus Toxoid Vaccination: No Hx Influenza Vaccination: No Hx Pneumococcal Vaccination: No - Home Medications Home Medications: Ambulatory Orders Medication Instructions Recorded Albuterol 0.083% [Albuterol 3 ml IH Q4 #100 neb 02/28/18 Sulfate 3 Ml] Azithromycin [Z-Jong] 250 mg PO DAILY #6 tab 02/28/18 Guaifenesin [Adult Tussin Chest 200 mg PO Q6H PRN #200 ml 02/28/18 Congestion] Nebulizer [Aeroeclipse II] 1 each MC DAILY #1 each 02/28/18 Cephalexin [Keflex] 500 mg PO Q6 #28 capsule 03/19/18 Clindamycin [Cleocin] 300 mg PO QID #40 cap 03/29/18 Zinc Oxide 11.3% [Balmex 11.3%] 5 applic TP BID #1 tube 03/29/18 Doxycycline Monohydrate 100 mg PO BID #14 tablet 04/20/18 - Allergies Allergies/Adverse Reactions: Allergies Allergy/AdvReac Type Severity Reaction Status Date / Time Penicillins Allergy RASH Verified 03/29/18 19:00 Review of Systems ROS Statement: Except As Marked, All Systems Reviewed And Found Negative Constitutional: Negative for: Fever, Chills Gastrointestinal: Negative for: Nausea, Vomiting, Abdominal Pain Genitourinary Male: Positive for: Penile Discharge. Negative for: Dysuria Physical Exam - Reviewed Nursing Documentation Reviewed: Yes Vital Signs Reviewed: Yes - Physical Exam Appears: Positive for: Well, Non-toxic, No Acute Distress Head Exam: Positive for: ATRAUMATIC, NORMAL INSPECTION, NORMOCEPHALIC Skin: Positive for: Normal Color, Warm, DRY Eye Exam: Positive for: Normal appearance, PERRL ENT: Positive for: Normal ENT Inspection Neck: Positive for: Normal, Painless ROM Respiratory: Negative for: Accessory Muscle Use, Respiratory Distress Gastrointestinal/Abdominal: Positive for: Normal Exam, Soft Back: Positive for: Normal Inspection Rectal: Positive for: Deferred Extremity: Positive for: Normal ROM. Negative for: Tenderness Neurologic/Psych: Positive for: Alert, Oriented - ECG O2 Sat by Pulse Oximetry: 100 Medical Decision Making Medical Decision Making: PT treated for STD. Discussed results in 3-4 days Disposition - Clinical Impression Clinical Impression: Discharge from penis - Patient ED Disposition Is Patient to be Admitted: No Counseled Patient/Family Regarding: Diagnosis, Need For Followup - Disposition Referrals: [facility] [Outside] Disposition: Routine/Home Disposition Time: 15:26 Condition: GOOD Prescriptions: Doxycycline Monohydrate 100 mg PO BID #14 tablet Instructions: Screening for Sexually Transmitted Infections Print Language: MALIAN
[2018-04-20 15:38] VITALS: BP 112/70; PULSE 70; RESP 19; TEMP 96.5; O2SAT 98
== END 2018-04-20 15:39 | disposition home or self-care (01) ==
LOC: H.ER 13:32
DX: R36.9 Urethral discharge, unspecified (principal); Z88.0 Allergy status to penicillin; F20.9 Schizophrenia, unspecified

== ENCOUNTER 2018-05-27 08:31 | Emergency (ER) | payer OTHER, SELFPAY ==
[2018-05-27 08:47] VITALS: BP 127/68; PULSE 74; RESP 20; TEMP 98.4; O2SAT 98
--- NOTE | 2018-05-27 11:14 | RAD ---
Date of service: 05/27/2018 PROCEDURE: Bilateral Knee Radiographs. HISTORY: atraumatic pain COMPARISON: None. FINDINGS: BONES: Right Knee: No fracture Left Knee: No fracture JOINTS: Right Knee: Minimal osteoarthritis. Anterior femoral condylar hypertrophic changes-series 1700, image 1 Left knee: Normal. No osteoarthritis. SOFT TISSUES: Right Knee: Normal. Left Knee: Normal. JOINT EFFUSION: Right Knee: None. Left Knee: None. OTHER FINDINGS: The left knee lateral view is obtained in extension the right knee is in mild flexion. These findings can contribute to the asymmetrical height of the patella relative to the femoral condyles. IMPRESSION: No fracture or dislocation. Other findings as above.
--- NOTE | 2018-05-27 11:17 | RAD ---
PROCEDURE: Radiographs of the pelvis and bilateral hips HISTORY: bilateral atraumatic hip pain COMPARISON: None. FINDINGS: BONES: The pelvic ring is intact. There is no acute displaced fracture or bone destruction. Bone alignment and mineralization are normal. JOINTS: The right hip joint space is preserved. There is mild degenerative osteoarthrosis in the left hip joint with mild reduced joint space, marginal spurring and subarticular cystic changes. SOFT TISSUES: Normal. OTHER FINDINGS: None. 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 No acute fracture or dislocation.
--- NOTE | 2018-05-27 12:27 | ED PDOC ---
Lower Extremity Pain/Injury Time Seen by Provider: 05/27/18 09:00 Chief Complaint (Nursing): Lower Extremity Problem/Injury Chief Complaint (Provider): Bilateral hip pain History Per: Patient History/Exam Limitations: no limitations Onset/Duration Of Symptoms: Other (x7-8 months) Current Symptoms Are (Timing): Still Present Additional Complaint(s): 37 year old male, with a PMHx of schizophrenia, presenting for evaluation of bilateral shoulder pain and bilateral hip pain x7-8 months. Patient reports shoulder pain has been intermittent for the past 7-8 months, but hip pain began a "few days ago." Patient denies any recent injury or trauma. Patient is also requesting bilateral knee x-rays due to an injury he had "many years ago" and concerns of possible complications. Patient denies any numbness, tingling, or paresthesias. PMD: None Past Medical History Reviewed: Historical Data, Nursing Documentation, Vital Signs Vital Signs: Last Vital Signs Temp 98.4 F 05/27/18 08:43 Pulse 74 05/27/18 08:43 Resp 20 05/27/18 08:43 BP 127/68 05/27/18 08:43 Pulse Ox 98 05/27/18 08:43 - Medical History PMH: Schizophrenia Denies: Diabetes, Hepatitis, HIV, HTN, Seizures, Sexually Transmitted Disease - Surgical History Surgical History: No Surg Hx - Family History Family History: States: Unknown Family Hx - Social History Current smoker - smoking cessation education provided: Yes (1 ppd) Alcohol: Occasional Drugs: Cocaine (crack) - Immunization History Hx Tetanus Toxoid Vaccination: No Hx Influenza Vaccination: No Hx Pneumococcal Vaccination: No - Home Medications Home Medications: Ambulatory Orders Medication Instructions Recorded Albuterol 0.083% [Albuterol 3 ml IH Q4 #100 neb 02/28/18 Sulfate 3 Ml] RX: Nebulizer [Aeroeclipse II] 1 each MC DAILY #1 each 02/28/18 - Allergies Allergies/Adverse Reactions: Allergies Allergy/AdvReac Type Severity Reaction Status Date / Time Penicillins Allergy RASH Verified 05/27/18 08:43 Review of Systems ROS Statement: Except As Marked, All Systems Reviewed And Found Negative Musculoskeletal: Positive for: Shoulder Pain (bilateral), Other (bilateral hip pain) Neurological: Negative for: Weakness, Numbness Physical Exam - Reviewed Nursing Documentation Reviewed: Yes Vital Signs Reviewed: Yes - Physical Exam Appears: Positive for: Non-toxic, No Acute Distress Skin: Positive for: Normal Color Extremity: Positive for: Normal ROM (Full ROM of bilateral shoulders and hips, skin shows no celulitis, warmth, tenderness, erythema or mobility restriction). Negative for: Tenderness (bilateral shoulders and bilateral hips), Deformity Neurologic/Psych: Positive for: Alert, Oriented - ECG O2 Sat by Pulse Oximetry: 98 (RA) Pulse Ox Interpretation: Normal Medical Decision Making Medical Decision Makin Impression: Knee pain, hip pain rule out fracture Plan: -Bilateral knee x-ray -Hip x-ray -Tylenol 650mg PO -Reevaluation 110 BILATERAL KNEE X-RAY FINDINGS: BONES: Right Knee: No fracture Left Knee: No fracture JOINTS: Right Knee: Minimal osteoarthritis. Anterior femoral condylar hypertrophic changes-series 1700, image 1 Left knee: Normal. No osteoarthritis. SOFT TISSUES: Right Knee: Normal. Left Knee: Normal. JOINT EFFUSION: Right Knee: None. Left Knee: None. OTHER FINDINGS: The left knee lateral view is obtained in extension the right knee is in mild flexion. These findings can contribute to the asymmetrical height of the patella relative to the femoral condyles. IMPRESSION: No fracture or dislocation. Other findings as above. 1113 HIP X-RAY FINDINGS: BONES: The pelvic ring is intact. There is no acute displaced fracture or bone destruction. Bone alignment and mineralization are normal. JOINTS: The right hip joint space is preserved. There is mild degenerative osteoarthrosis in the left hip joint with mild reduced joint space, marginal spurring and subarticular cystic changes. SOFT TISSUES: Normal. OTHER FINDINGS: None. 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 No acute fracture or dislocation. 1200: X-rays reviewed and findings discussed with patient. Patient advised to follow up with clinic for management of pain. Patient is stable for discharge home. Scribe Attestation: Documented by Andre Rosado, acting as a scribe for Shanon Tovar MD. Provider Scribe Attestation: All medical record entries made by the Scribe were at my direction and personally dictated by me. I have reviewed the chart and agree that the record accurately reflects my personal performance of the history, physical exam, medical decision making, and the department course for this patient. I have also personally directed, reviewed, and agree with the discharge instructions and disposition. Disposition - Clinical Impression Clinical Impression: Complaints of total body pain - Patient ED Disposition Is Patient to be Admitted: No Counseled Patient/Family Regarding: Studies Performed, Diagnosis, Need For Followup - Disposition Referrals: [facility] [Outside] [facility] [Outside] Disposition: Routine/Home Disposition Time: 11:00 Condition: IMPROVED Additional Instructions: follow up in the clinic in 1-2 days return to the ED with any worsening or concerning symptoms Instructions: Acute Pain, Adult (DC) Forms: [facility] (Surinamese) Print Language: CANADIAN
== END 2018-05-27 12:01 | disposition home or self-care (01) ==
LOC: H.ER 08:31
DX: M79.10 Myalgia, unspecified site (principal); M16.12 Unilateral primary osteoarthritis, left hip; Z88.0 Allergy status to penicillin

== ENCOUNTER 2018-07-06 07:02 | Emergency (ER) | payer SELFPAY ==
[2018-07-06 07:22] VITALS: BP 125/72; PULSE 86; RESP 18; TEMP 97.8; O2SAT 99
--- NOTE | 2018-07-06 07:35 | ED PDOC ---
HPI: Back Time Seen by Provider: 07/06/18 07:23 Chief Complaint (Nursing): Back Pain Chief Complaint (Provider): Back Pain History Per: Patient History/Exam Limitations: no limitations Onset/Duration Of Symptoms: Days (x3 days) Exacerbating Factor(s): Other (bending over) Additional Complaint(s): Katt Walter is a 37 year old male with a history of back pain and schizophrenia, presents to the emergency department complaining of right sided upper back pain, worsened when bending over, onset x3 days. 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 He denies sustaining any trauma, cough, or shortness of breath. PMD: No provider Past Medical History Reviewed: Historical Data, Nursing Documentation, Vital Signs Vital Signs: Last Vital Signs Temp 97.8 F 07/06/18 07:20 Pulse 86 07/06/18 07:20 Resp 18 07/06/18 07:20 BP 125/72 07/06/18 07:20 Pulse Ox 99 07/06/18 07:20 - Medical History PMH: Back Problems, Schizophrenia Denies: Diabetes, Hepatitis, HIV, HTN, Seizures, Sexually Transmitted Disease - Surgical History Surgical History: No Surg Hx - Family History Family History: States: Unknown Family Hx - Immunization History Hx Tetanus Toxoid Vaccination: No Hx Influenza Vaccination: No Hx Pneumococcal Vaccination: No - Home Medications Home Medications: Ambulatory Orders Medication Instructions Recorded Albuterol 0.083% [Albuterol 3 ml IH Q4 #100 neb 02/28/18 Sulfate 3 Ml] Nebulizer [Aeroeclipse II] 1 each MC DAILY #1 each 02/28/18 Naproxen [Naprosyn] 500 mg PO BID PRN #15 tablet 07/06/18 - Allergies Allergies/Adverse Reactions: Allergies Allergy/AdvReac Type Severity Reaction Status Date / Time Penicillins Allergy RASH Verified 05/27/18 08:43 Review of Systems ROS Statement: Except As Marked, All Systems Reviewed And Found Negative Respiratory: Negative for: Cough, Shortness of Breath Musculoskeletal: Positive for: Back Pain Physical Exam - Reviewed Nursing Documentation Reviewed: Yes Vital Signs Reviewed: Yes - Physical Exam Appears: Positive for: Non-toxic, No Acute Distress Head Exam: Positive for: ATRAUMATIC, NORMOCEPHALIC Skin: Positive for: Normal Color Eye Exam: Positive for: Normal appearance Neck: Positive for: Normal, Painless ROM, Supple Cardiovascular/Chest: Positive for: Regular Rate, Rhythm. Negative for: Murmur Respiratory: Positive for: Normal Breath Sounds. Negative for: Respiratory Distress Gastrointestinal/Abdominal: Positive for: Normal Exam, Soft. Negative for: Tenderness Back: Positive for: Normal Inspection. Negative for: L CVA Tenderness, R CVA Tenderness, Vertebral Tenderness, Other (lesions or rash) Extremity: Positive for: Normal ROM Neurologic/Psych: Positive for: Alert, Oriented (x3) - ECG O2 Sat by Pulse Oximetry: 99 (RA) Pulse Ox Interpretation: Normal Medical Decision Making Medical Decision Making: Initial Time: 07:29 Initial Impression: Back Pain Initial Plan: --Chest X-ray --Motrin tab 600 mg PO 07:57 Chest X-ray FINDINGS: LUNGS: No active pulmonary disease. PLEURA: No significant pleural effusion identified. No pneumothorax apparent. CARDIOVASCULAR: No aortic atherosclerotic calcification present. Normal cardiac size. No pulmonary vascular congestion. OSSEOUS STRUCTURES: No significant abnormalities. VISUALIZED UPPER ABDOMEN: Normal. OTHER FINDINGS: None. IMPRESSION: No interval acute cardiopulmonary disease appreciated. Scribe Attestation: Documented by Fabian Stevenson, acting as a scribe for Mary Martinez MD. Provider Scribe Attestation: All medical record entries made by the Scribe were at my direction and personally dictated by me. I have reviewed the chart and agree that the record accurately reflects my personal performance of the history, physical exam, medical decision making, and the department course for this patient. I have also personally directed, reviewed, and agree with the discharge instructions and disposition. Disposition - Clinical Impression Clinical Impression: Upper back strain - Disposition Referrals: [facility] [Outside] Disposition: Routine/Home Disposition Time: 08:25 Condition: GOOD Prescriptions: Naproxen [Naprosyn] 500 mg PO BID PRN #15 tablet PRN Reason: Pain, Moderate (4-7) Instructions: Muscle Strain Forms: [facility] (Wolof) Print Language: CUBAN
--- NOTE | 2018-07-06 08:00 | RAD ---
Date of service: 07/06/2018 HISTORY: R upper back pain COMPARISON: Chest radiographs 02/28/2018. TECHNIQUE: Chest PA and lateral FINDINGS: LUNGS: No active pulmonary disease. PLEURA: No significant pleural effusion identified. No pneumothorax apparent. CARDIOVASCULAR: No aortic atherosclerotic calcification present. Normal cardiac size. No pulmonary vascular congestion. OSSEOUS STRUCTURES: No significant abnormalities. VISUALIZED UPPER ABDOMEN: Normal. OTHER FINDINGS: None. IMPRESSION: No interval acute cardiopulmonary disease appreciated.
== END 2018-07-06 08:25 | disposition home or self-care (01) ==
LOC: H.ER 07:02
DX: M54.9 Dorsalgia, unspecified (principal); F20.9 Schizophrenia, unspecified; Z88.0 Allergy status to penicillin

== ENCOUNTER 2018-07-22 04:27 | Emergency (ER) | payer SELFPAY ==
[2018-07-22 04:46] VITALS: BP 114/71; PULSE 84; RESP 18; TEMP 97.5; O2SAT 100
--- NOTE | 2018-07-22 05:14 | ED PDOC ---
HPI: Dental Pain/Injury Time Seen by Provider: 07/22/18 04:58 Chief Complaint (Nursing): Dental Pain Chief Complaint (Provider): Dental Pain History Per: Patient History/Exam Limitations: no limitations Onset/Duration Of Symptoms: Days (x 3) Current Symptoms Are (Timing): Still Present Quality: "Pain" Additional Complaint(s): 37 year old male presents to the ED with left lower jaw pain for the last 3 days. Patient reports having "bad teeth" on the left side. He took Motrin 30 minutes prior to arrival with significant relief of symptoms. Patient sees a dentist in [facility]. Denies other complaints at this time. PMD: [facility] Past Medical History Reviewed: Historical Data, Nursing Documentation, Vital Signs Vital Signs: Last Vital Signs Temp 97.5 F L 07/22/18 04:43 Pulse 84 07/22/18 04:43 Resp 18 07/22/18 04:43 BP 114/71 07/22/18 04:43 Pulse Ox 100 07/22/18 04:43 - Medical History PMH: Back Problems, Schizophrenia Denies: Diabetes, Hepatitis, HIV, HTN, Chronic Kidney Disease, Seizures, Sexually Transmitted Disease - Surgical History Surgical History: No Surg Hx - Family History Family History: States: Unknown Family Hx - Immunization History Hx Tetanus Toxoid Vaccination: No Hx Influenza Vaccination: No Hx Pneumococcal Vaccination: No - Home Medications Home Medications: Ambulatory Orders Medication Instructions Recorded Albuterol 0.083% [Albuterol 3 ml IH Q4 #100 neb 02/28/18 Sulfate 3 Ml] RX: Nebulizer [Aeroeclipse II] 1 each MC DAILY #1 each 02/28/18 Naproxen [Naprosyn] 500 mg PO BID PRN #15 tablet 07/06/18 Ibuprofen [Motrin] 600 mg PO Q6 PRN #20 tab 07/22/18 RX: Clindamycin [Cleocin] 300 mg PO TID #15 cap 07/22/18 - Allergies Allergies/Adverse Reactions: Allergies Allergy/AdvReac Type Severity Reaction Status Date / Time Penicillins Allergy RASH Verified 05/27/18 08:43 Review of Systems ROS Statement: Except As Marked, All Systems Reviewed And Found Negative ENT: Positive for: Mouth Pain (left lower jaw and tooth) Physical Exam - Reviewed Nursing Documentation Reviewed: Yes Vital Signs Reviewed: Yes - Physical Exam Appears: Positive for: No Acute Distress Skin: Positive for: Normal Color, Warm, Dry Eye Exam: Positive for: Normal appearance, EOMI, PERRL ENT: Positive for: Other (cavity on premolars 20 and 21; large cavities on 18 and 19) Neurologic/Psych: Positive for: Alert, Oriented. Negative for: Motor/Sensory Deficits - ECG O2 Sat by Pulse Oximetry: 100 (RA) Pulse Ox Interpretation: Normal Medical Decision Making Medical Decision Makin Impression: toothache; large cavities, possibly periodontal abscess --Patient requires no further medical treatment at this time. Will be discharged with Clindamycin and Motrin. Follow up appt with dentist at clinic this morning. Scribe Attestation: Documented by Deonna Gibbs acting as a scribe for Ananth Cardenas MD Provider Scribe Attestation: All medical record entries made by the Scribe were at my direction and personally dictated by me. I have reviewed the chart and agree that the record accurately reflects my personal performance of the history, physical exam, medical decision making, and the department course for this patient. I have also personally directed, reviewed, and agree with the discharge instructions and disposition. Disposition - Clinical Impression Clinical Impression: Toothache, Dental caries - Patient ED Disposition Is Patient to be Admitted: No Doctor Will See Patient In The: Office Counseled Patient/Family Regarding: Studies Performed, Diagnosis, Need For Followup - Disposition Referrals: [facility] [Outside] Disposition: Routine/Home Disposition Time: 05:25 Condition: GOOD Additional Instructions: JUAN FRANCISCO ABURTO, thank you for letting us take care of you today. Your provider was Ananth Cardenas MD and you were treated for TOOTH PAIN. The emergency medical care you received today was directed at your acute symptoms. If you were prescribed any medication, please fill it and take as directed. It may take several days for your symptoms to resolve. Return to the Emergency Department if your symptoms worsen, do not improve, or if you have any other problems. Please contact your doctor or call one of the physicians/clinics you have been referred to that are listed on the Patient Visit Information form that is included in your discharge packet. Bring any paperwork you were given at discharge with you along with any medications you are taking to your follow up visit. Our treatment cannot replace ongoing medical care by a primary care provider outside of the emergency department. Thank you for allowing the [facility] team to be part of your care today. If you had an X-Ray or CT scan: A Radiologist will review the ED reading if any change in treatment is needed we will contact you. If you had a blood, urine, or wound culture: It will take several days for the results, if any change in treatment is needed we will contact you. If you had an STI test: It will take 48 hours for the results. Please call after 1 week if you have not heard back. Prescriptions: RX: Clindamycin [Cleocin] 300 mg PO TID #15 cap Ibuprofen [Motrin] 600 mg PO Q6 PRN #20 tab PRN Reason: Pain, Moderate (4-7) Instructions: Dental Pain (DC)
== END 2018-07-22 05:25 | disposition home or self-care (01) ==
LOC: H.ER 04:27
DX: K08.89 Other specified disorders of teeth and supporting structures (principal)

== ENCOUNTER 2018-07-26 16:21 | Emergency (ER) | payer SELFPAY ==
[2018-07-26 16:37] VITALS: BP 116/68; PULSE 86; RESP 16; TEMP 98; O2SAT 99
--- NOTE | 2018-07-26 16:57 | ED PDOC ---
HPI: Dental Pain/Injury Time Seen by Provider: 07/26/18 16:25 Chief Complaint (Nursing): Dental Pain Chief Complaint (Provider): Dental Pain History Per: Patient History/Exam Limitations: no limitations Onset/Duration Of Symptoms: Days (x5) Current Symptoms Are (Timing): Still Present Additional Complaint(s): 37 year old male presents to the ED for dental pain. Patient was here on 07/21 for left lower jaw pain, and was sent home with script for clindomycin, but he reports he was unable to fill the script secondary to monetary issues, and now the pain is also in his right lower jaw. He notes seeing a dentist yesterday, and has another appointment for 08/02. Reports taking Tylenol and Motrin without relief. PMD: none provided Past Medical History Reviewed: Historical Data, Nursing Documentation, Vital Signs Vital Signs: Last Vital Signs Temp 98.0 F 07/26/18 16:33 Pulse 86 07/26/18 16:33 Resp 16 07/26/18 16:33 BP 116/68 07/26/18 16:33 Pulse Ox 99 07/26/18 16:33 - Medical History PMH: Back Problems, Schizophrenia Denies: Diabetes, Hepatitis, HIV, HTN, Chronic Kidney Disease, Seizures, Sexually Transmitted Disease - Surgical History Surgical History: No Surg Hx - Family History Family History: States: Unknown Family Hx - Immunization History Hx Tetanus Toxoid Vaccination: No Hx Influenza Vaccination: No Hx Pneumococcal Vaccination: No - Home Medications Home Medications: Ambulatory Orders Medication Instructions Recorded Albuterol 0.083% [Albuterol 3 ml IH Q4 #100 neb 02/28/18 Sulfate 3 Ml] Nebulizer [Aeroeclipse II] 1 each MC DAILY #1 each 02/28/18 Naproxen [Naprosyn] 500 mg PO BID PRN #15 tablet 07/06/18 Clindamycin [Cleocin] 300 mg PO TID #15 cap 07/22/18 Ibuprofen [Motrin] 600 mg PO Q6 PRN #20 tab 07/22/18 traMADol [Ultram] 50 mg PO Q6H PRN #15 tab 07/26/18 - Allergies Allergies/Adverse Reactions: Allergies Allergy/AdvReac Type Severity Reaction Status Date / Time Penicillins Allergy RASH Verified 05/27/18 08:43 Review of Systems ROS Statement: Except As Marked, All Systems Reviewed And Found Negative ENT: Positive for: Other (bilateral lower jaw pain) Physical Exam - Reviewed Nursing Documentation Reviewed: Yes Vital Signs Reviewed: Yes - Physical Exam Appears: Positive for: No Acute Distress Head Exam: Positive for: ATRAUMATIC, NORMAL INSPECTION, NORMOCEPHALIC Skin: Positive for: Normal Color Eye Exam: Positive for: Normal appearance ENT: Positive for: Other (poor dentition to lower jaw) Neck: Positive for: Normal Cardiovascular/Chest: Negative for: Bradycardia, Tachycardia Respiratory: Negative for: Accessory Muscle Use, Respiratory Distress Back: Positive for: Normal Inspection Extremity: Positive for: Normal ROM Neurologic/Psych: Positive for: Alert, Oriented, Gait - ECG O2 Sat by Pulse Oximetry: 99 (RA) Pulse Ox Interpretation: Normal Medical Decision Making Medical Decision Making: Time: 1654 Initial Impression: dental pain Initial Plan: --Ultram 50mg PO Scribe Attestation: Documented by Nora Ortiz, acting as a scribe for Cindy Kraus PA-C Provider Scribe Attestation: All medical record entries made by the Scribe were at my direction and personally dictated by me. I have reviewed the chart and agree that the record accurately reflects my personal performance of the history, physical exam, medical decision making, and the department course for this patient. I have also personally directed, reviewed, and agree with the discharge instructions and disposition. Disposition - Clinical Impression Clinical Impression: Dental caries - Disposition Disposition: Routine/Home Disposition Time: 17:01 Condition: STABLE Prescriptions: traMADol [Ultram] 50 mg PO Q6H PRN #15 tab PRN Reason: Pain Instructions: Tooth Decay, Adult Forms: [facility] (Georgian) Print Language: NAMIBIAN
== END 2018-07-26 18:04 | disposition home or self-care (01) ==
LOC: H.ER 16:21
DX: K02.9 Dental caries, unspecified (principal); Z88.0 Allergy status to penicillin; F20.9 Schizophrenia, unspecified

== ENCOUNTER 2018-07-26 23:28 | Emergency (ER) | payer SELFPAY ==
[2018-07-27] VITALS: BP 115/83; PULSE 92; RESP 16; TEMP 98.2; O2SAT 99
--- NOTE | 2018-07-27 00:43 | ED PDOC ---
HPI: Dental Pain/Injury Time Seen by Provider: 07/27/18 00:41 Chief Complaint (Nursing): Dental Pain Chief Complaint (Provider): DENTAL PAIN History Per: Patient (37 Y/O MALE HERE WITH DENTAL PAIN NOTED RIGHT SIDED NEW X FEW DAYS. STATES HE WAS SEEN EARLIER TODAY AND GIVEN RX FOR PAIN MEDICATION BUT UNABLE TO FIND A PHARMACY THAT SUPPLIED. HE WAS LAST WRITTEN RX FOR CLINDAMYCIN 07/22 FOR LEFT SIDED DENTAL PAIN WHICH HE COMPLETED AND STATES PAIN ON THIS SIDE RESOLVED.) Past Medical History Reviewed: Historical Data, Nursing Documentation, Vital Signs Vital Signs: Last Vital Signs Temp 98.2 F 07/26/18 23:58 Pulse 92 H 07/26/18 23:58 Resp 16 07/26/18 23:58 BP 115/83 07/26/18 23:58 Pulse Ox 99 07/26/18 23:58 - Medical History PMH: Back Problems, Schizophrenia Denies: Diabetes, Hepatitis, HIV, HTN, Chronic Kidney Disease, Seizures, Sexually Transmitted Disease - Family History Family History: States: Unknown Family Hx - Immunization History Hx Tetanus Toxoid Vaccination: No Hx Influenza Vaccination: No Hx Pneumococcal Vaccination: No - Home Medications Home Medications: Ambulatory Orders Medication Instructions Recorded Albuterol 0.083% [Albuterol 3 ml IH Q4 #100 neb 02/28/18 Sulfate 3 Ml] Nebulizer [Aeroeclipse II] 1 each MC DAILY #1 each 02/28/18 Naproxen [Naprosyn] 500 mg PO BID PRN #15 tablet 07/06/18 Clindamycin [Cleocin] 300 mg PO TID #15 cap 07/22/18 Ibuprofen [Motrin] 600 mg PO Q6 PRN #20 tab 07/22/18 traMADol [Ultram] 50 mg PO Q6H PRN #15 tab 07/26/18 Clindamycin [Cleocin] 1 tab PO QID #28 cap 07/27/18 - Allergies Allergies/Adverse Reactions: Allergies Allergy/AdvReac Type Severity Reaction Status Date / Time Penicillins Allergy RASH Verified 05/27/18 08:43 Review of Systems ROS Statement: Except As Marked, All Systems Reviewed And Found Negative Physical Exam - Reviewed Nursing Documentation Reviewed: Yes Vital Signs Reviewed: Yes - Physical Exam Appears: Positive for: Well, Non-toxic, No Acute Distress Head Exam: Positive for: ATRAUMATIC, NORMAL INSPECTION, NORMOCEPHALIC Skin: Positive for: Normal Color, Warm, DRY Eye Exam: Positive for: EOMI, Normal appearance, PERRL ENT: Positive for: Other (POOR DENTITION;DENTAL CARIES). Negative for: Normal ENT Inspection Neck: Positive for: Normal, Painless ROM Cardiovascular/Chest: Positive for: Regular Rate, Rhythm Respiratory: Positive for: CNT, Normal Breath Sounds Gastrointestinal/Abdominal: Positive for: Normal Exam, Soft Back: Positive for: Normal Inspection Extremity: Positive for: Normal ROM Neurologic/Psych: Positive for: Alert, Oriented - ECG O2 Sat by Pulse Oximetry: 99 - Progress ED Course And Treament: TORADOL 30 MG IM X 1 DOSE Disposition - Clinical Impression Clinical Impression: Dental caries, Pain, dental - Patient ED Disposition Is Patient to be Admitted: No - Disposition Disposition: Routine/Home Disposition Time: 00:44 Condition: FAIR Prescriptions: Clindamycin [Cleocin] 1 tab PO QID #28 cap Instructions: Dental Pain (DC) Print Language: PASHTO
== END 2018-07-27 01:35 | disposition home or self-care (01) ==
LOC: H.ER 23:28
DX: K02.9 Dental caries, unspecified (principal); Z88.0 Allergy status to penicillin
CPT/HCPCS: 96372; 99283; J1885

== ENCOUNTER 2018-08-10 23:34 | Emergency (ER) | payer SELFPAY ==
--- NOTE | 2018-08-11 01:11 | ED PDOC ---
HPI: Psych/Substance Abuse Time Seen by Provider: 08/11/18 00:00 Chief Complaint (Nursing): Medical Clearance Chief Complaint (Provider): Medical Clearance History Per: Patient History/Exam Limitations: no limitations Onset/Duration Of Symptoms: Days Current Symptoms Are (Timing): Still Present Modifying Factor(s): Cocaine Associated Symptoms: denies: Suicidal Thoughts, Suicidal Plan Additional History Per: Law Enforcement Additional Complaint(s): 37 year old male with a history of back problems and schizophrenia presents to the ED for an evaluation for medical and psychiatric clearance for incarceration. As per police, patient is depressed, homeless and relapsed on crack. Patient states he fights hid addiction every day and he currently feels alone. Otherwise patient denies fever, abdominal pain, chest pain, shortness of breath or SI/HI. PMD: No Family Provider Past Medical History Reviewed: Historical Data, Nursing Documentation, Vital Signs Vital Signs: Last Vital Signs Temp 98.4 F 08/10/18 23:51 Pulse 81 08/10/18 23:51 Resp 17 08/10/18 23:51 BP 126/84 08/10/18 23:51 Pulse Ox 100 08/10/18 23:51 - Medical History PMH: Back Problems, Schizophrenia Denies: Diabetes, Hepatitis, HIV, HTN, Chronic Kidney Disease, Seizures, Sexually Transmitted Disease - Surgical History Surgical History: No Surg Hx - Family History Family History: States: Unknown Family Hx - Social History Current smoker - smoking cessation education provided: No Alcohol: > 2 Drinks/Day Drugs: Cocaine - Immunization History Hx Tetanus Toxoid Vaccination: No Hx Influenza Vaccination: No Hx Pneumococcal Vaccination: No - Home Medications Home Medications: Ambulatory Orders Medication Instructions Recorded Albuterol 0.083% [Albuterol 3 ml IH Q4 #100 neb 02/28/18 Sulfate 3 Ml] RX: Nebulizer [Aeroeclipse II] 1 each MC DAILY #1 each 02/28/18 Naproxen [Naprosyn] 500 mg PO BID PRN #15 tablet 07/06/18 Ibuprofen [Motrin] 600 mg PO Q6 PRN #20 tab 07/22/18 RX: Clindamycin [Cleocin] 300 mg PO TID #15 cap 07/22/18 RX: traMADol [Ultram] 50 mg PO Q6H PRN #15 tab 07/26/18 RX: Clindamycin [Cleocin] 1 tab PO QID #28 cap 07/27/18 - Allergies Allergies/Adverse Reactions: Allergies Allergy/AdvReac Type Severity Reaction Status Date / Time Penicillins Allergy RASH Verified 05/27/18 08:43 Review of Systems ROS Statement: Except As Marked, All Systems Reviewed And Found Negative Constitutional: Negative for: Fever Cardiovascular: Negative for: Chest Pain Respiratory: Negative for: Cough, Shortness of Breath Gastrointestinal: Negative for: Nausea, Vomiting, Abdominal Pain, Diarrhea Skin: Negative for: Rash Neurological: Negative for: Weakness, Numbness Psych: Positive for: Depression. Negative for: Suicidal ideation Physical Exam - Reviewed Nursing Documentation Reviewed: Yes Vital Signs Reviewed: Yes - Physical Exam Appears: Positive for: Non-toxic, No Acute Distress Head Exam: Positive for: ATRAUMATIC, NORMAL INSPECTION, NORMOCEPHALIC Skin: Positive for: Normal Color, Warm, Dry. Negative for: Rash Eye Exam: Positive for: EOMI, Normal appearance, PERRL ENT: Positive for: Normal ENT Inspection Neck: Positive for: Normal, Painless ROM, Supple. Negative for: Decreased ROM Cardiovascular/Chest: Positive for: Regular Rate, Rhythm. Negative for: Murmur Respiratory: Positive for: Normal Breath Sounds. Negative for: Decreased Breath Sounds, Wheezing, Respiratory Distress Gastrointestinal/Abdominal: Positive for: Normal Exam, Soft. Negative for: Tenderness Back: Positive for: Normal Inspection Extremity: Positive for: Normal ROM. Negative for: Tenderness, Pedal Edema, Deformity Neurologic/Psych: Positive for: Alert, Oriented (x3). Negative for: Motor/Sensory Deficits - Laboratory Results Result Diagrams: 08/11/18 04:48 08/11/18 01:29 - ECG O2 Sat by Pulse Oximetry: 100 (RA) Pulse Ox Interpretation: Normal Medical Decision Making Medical Decision Making: Time: 53 Initial Plan: drug abuse, depression Alcohol serum Drug screen Glucose, Blood, POC CMP CBC w/ Differential Reevaluation Time: 143 Chest portable Urine C&S Urinalysis Normal Saline 999 mls/hr VBG Shock Patient lab reports of elevated WBC of 21. Time: 441 Patient's cbc w/ differential will be repeated to evaluate any change in WBC. Patient is sleeping throughout the ER stay. wbc went down to 18 on repeat. slightly improved lab. but pt denies pain, fever, vomiting, abdominal or chest pain, urinary symptoms, cough, URI symptoms. lactic acid normal. As per Dr. Jean (crisis), patient is diagnosed with adjustment disorder and will be discharged and released to police custody. 6 am Upon provider reevaluation patient is feeling better, is medically stable, (pt resting throughtout with no complaints other than feeling depressed) and requires no further treatment in the ED at this time. Patient will be discharged to law enforcement. Counseling was provided and all questions were answered regarding diagnosis and need for follow up with doctor. There is agreement to discharge plan. Return if symptoms persist or worsen. Scribe Attestation: Documented by Kleber Álvarez, acting as a scribe for Shanon Tovar MD. Provider Scribe Attestation: All medical record entries made by the Scribe were at my direction and personally dictated by me. I have reviewed the chart and agree that the record accurately reflects my personal performance of the history, physical exam, medical decision making, and the department course for this patient. I have also personally directed, reviewed, and agree with the discharge instructions and disposition Disposition - Clinical Impression Clinical Impression: Substance abuse, Adjustment disorder - Patient ED Disposition Is Patient to be Admitted: No Counseled Patient/Family Regarding: Studies Performed, Diagnosis, Need For Followup - Disposition Disposition: Discharged/Transfer to Law Enforcement Disposition Time: 06:00 Condition: IMPROVED Additional Instructions: follow up as an outpatient with your doctor in 2 days return to the ED with any worsening or concerning symptoms patient is medically and psychiatrically cleared for incarceration Instructions: Adjustment Disorder, Drug Abuse and Drug Addiction (DC) Forms: [employer] (Amharic)
[2018-08-11 01:32] LABS: BASO # 0.1 K/uL (0.0-0.2); BASO % 0.5 % (0.0-2.0); HEMOGLOBIN 13.6 g/dL (12.0-18.0); LYMPH # 1.9 K/uL (1.0-4.3); LYMPH % 8.7 % (20.0-40.0); MEAN CELL VOLUME 94.5 fl (80.0-94.0); MEAN CORPUSCULAR HEMOGLOBIN 30.7 pg (27.0-31.0); MEAN CORPUSCULAR HGB CONC 32.5 g/dL (33.0-37.0); MEAN PLATELET VOLUME 7.8 fl (7.2-11.7); MONO # 1.1 K/uL (0.0-0.8); MONO % 4.9 % (0.0-10.0); NEUT # 18.6 K/uL (1.8-7.0); NEUT % 85.9 % (50.0-75.0); PLATELET COUNT 173 K/uL (130-400); RBC 4.42 Mil/uL (4.40-5.90); RED CELL DISTRIBUTION WIDTH 14.2 % (11.5-14.5); WHITE BLOOD COUNT 21.6 K/uL (4.8-10.8)
[2018-08-11 01:40] LABS: ALB/GLOB RATIO 1.6 (1.0-2.1); ALBUMIN 4.6 g/dL (3.5-5.0); ALT/SGPT 51 U/L (21-72); AST/SGOT 94 U/L (17-59); BLOOD UREA NITROGEN 13 mg/dl (9-20); CALCIUM 9.4 mg/dL (8.4-10.2); GFR NON-AFRICAN AMERICAN > 60
[2018-08-11] MEDS ORDERED: Sodium Chloride 0.9% 1,000 ML IV STA (01:55)
[2018-08-11 02:31] LABS: VENOUS BLOOD GAS BASE EXCESS 2.8 mmol/L (0.0-2.0); VENOUS BLOOD GAS PCO2 47 mmHg (40-60); VENOUS BLOOD GAS PO2 60 mm/Hg (30-55); VENOUS BLOOD PH 7.39 (7.32-7.43)
[2018-08-11 02:40] LABS: BANDS 2 % (0-2); LYMPHOCYTE 14 % (20-50); MONOCYTE 5 % (0-10); NEUTROPHIL 79 % (42-75); PLATELET ESTIMATE NORMAL (NORMAL); TOTAL CELLS COUNTED 100
[2018-08-11 02:45] LABS: ANISOCYTOSIS SLIGHT; STOMATOCYTES SLIGHT
[2018-08-11 04:08] LABS: URINE BACTERIA RARE (<OCC); URINE BILIRUBIN NEGATIVE (NEGATIVE); URINE BLOOD NEGATIVE (NEGATIVE); URINE CLARITY CLEAR (Clear); URINE COLOR YELLOW (YELLOW); URINE GLUCOSE (UA) NEG (NEGATIVE); URINE LEUKOCYTE ESTERASE NEG Leu/uL (Negative); URINE PROTEIN NEGATIVE (NEGATIVE); URINE UROBILINOGEN 0.2-1.0 mg/dL (0.2-1.0)
[2018-08-11 04:43] LABS: BARBITURATES, UR NEGATIVE (NEGATIVE); BENZODIAZEPINES, UR NEGATIVE (NEGATIVE); OPIATES, UR NEGATIVE (NEGATIVE); PHENCYCLIDINE, UR NEGATIVE (NEGATIVE)
[2018-08-11 04:54] LABS: BASO # 0.1 K/uL (0.0-0.2); BASO % 0.5 % (0.0-2.0); EOS # 0.1 K/uL (0.0-0.7); EOS % 0.3 % (0.0-4.0); HEMOGLOBIN 13.2 g/dL (12.0-18.0); LYMPH # 2.8 K/uL (1.0-4.3); LYMPH % 15.8 % (20.0-40.0); MEAN CELL VOLUME 93.8 fl (80.0-94.0); MEAN CORPUSCULAR HEMOGLOBIN 31.3 pg (27.0-31.0); MEAN CORPUSCULAR HGB CONC 33.4 g/dL (33.0-37.0); MEAN PLATELET VOLUME 7.6 fl (7.2-11.7); MONO # 1.3 K/uL (0.0-0.8); MONO % 7.3 % (0.0-10.0); NEUT # 13.7 K/uL (1.8-7.0); NEUT % 76.1 % (50.0-75.0); RBC 4.2 Mil/uL (4.40-5.90); RED CELL DISTRIBUTION WIDTH 14.3 % (11.5-14.5)
[2018-08-11 05:29] VITALS: BP 114/59; PULSE 75; RESP 18; TEMP 98.5
--- NOTE | 2018-08-11 14:52 | RAD ---
Date of service: 08/11/2018 HISTORY: depression COMPARISON: Chest radiographs 07/06/2018. FINDINGS: LUNGS: No active pulmonary disease. PLEURA: No significant pleural effusion identified, no pneumothorax apparent. CARDIOVASCULAR: No aortic atherosclerotic calcification present. Normal cardiac size. No pulmonary vascular congestion. OSSEOUS STRUCTURES: No significant abnormalities. VISUALIZED UPPER ABDOMEN: Normal. OTHER FINDINGS: None. IMPRESSION: No interval acute cardiopulmonary disease appreciated.
[2018-08-13 04:52] VITALS: O2SAT 100
== END 2018-08-11 05:40 | disposition home or self-care (01) ==
LOC: H.ER 23:34
DX: F43.20 Adjustment disorder, unspecified (principal); Z86.59 Personal history of other mental and behavioral disorders; Z88.0 Allergy status to penicillin; F19.10 Other psychoactive substance abuse, uncomplicated
CPT/HCPCS: 71045; 80053; 80320; 80324; 80345; 80346; 80349; 80353; 80358; 80361; 81003; 82803; 82948; 83992; 85025; 87086; 96360; 99281; J7030

== ENCOUNTER 2018-09-04 00:28 | Emergency (ER) | payer SELFPAY ==
[2018-09-04 00:46] VITALS: BMI 26.2
[2018-09-04 00:47] VITALS: BP 135/73; PULSE 78; RESP 18; TEMP 98.6; O2SAT 99
--- NOTE | 2018-09-04 01:22 | ED PDOC ---
HPI: Dental Pain/Injury Time Seen by Provider: 09/04/18 00:50 Chief Complaint (Nursing): Dental Pain Chief Complaint (Provider): Dental Pain History Per: Patient History/Exam Limitations: no limitations Onset/Duration Of Symptoms: Days Current Symptoms Are (Timing): Still Present Additional Complaint(s): 38 y/o male with no significant PMHx presents to the ED for evaluation of dental pain, onset one day ago. Patient reports of having a tooth extraction done yesterday to the left lower jaw, eliciting pain at this time. Patient states he took one dose of Tylenol at onset with no relief of pain and another dose of Tylenol today. Patient reports pain resolved while waiting in the ED. Patient states he will follow up with dentist today. Otherwise, no trauma, fever or discharge. PMD: Clinic Past Medical History Reviewed: Historical Data, Nursing Documentation, Vital Signs Vital Signs: Last Vital Signs Temp 98.6 F 09/04/18 00:46 Pulse 78 09/04/18 00:46 Resp 18 09/04/18 00:46 BP 135/73 09/04/18 00:46 Pulse Ox 99 09/04/18 00:46 - Medical History PMH: Back Problems, Schizophrenia Denies: Diabetes, Hepatitis, HIV, HTN, Chronic Kidney Disease, Seizures, Sexually Transmitted Disease - Surgical History Surgical History: No Surg Hx - Family History Family History: States: Unknown Family Hx - Immunization History Hx Tetanus Toxoid Vaccination: No Hx Influenza Vaccination: No Hx Pneumococcal Vaccination: No - Home Medications Home Medications: Ambulatory Orders Medication Instructions Recorded Albuterol 0.083% [Albuterol 3 ml IH Q4 #100 neb 02/28/18 Sulfate 3 Ml] Nebulizer [Aeroeclipse II] 1 each MC DAILY #1 each 02/28/18 Naproxen [Naprosyn] 500 mg PO BID PRN #15 tablet 07/06/18 Clindamycin [Cleocin] 300 mg PO TID #15 cap 07/22/18 Ibuprofen [Motrin] 600 mg PO Q6 PRN #20 tab 07/22/18 traMADol [Ultram] 50 mg PO Q6H PRN #15 tab 07/26/18 Clindamycin [Cleocin] 1 tab PO QID #28 cap 07/27/18 Clindamycin [Cleocin] 300 mg PO TID #9 cap 09/04/18 - Allergies Allergies/Adverse Reactions: Allergies Allergy/AdvReac Type Severity Reaction Status Date / Time Penicillins Allergy RASH Verified 09/04/18 00:46 Review of Systems ROS Statement: Except As Marked, All Systems Reviewed And Found Negative ENT: Positive for: Mouth Pain Physical Exam - Reviewed Nursing Documentation Reviewed: Yes Vital Signs Reviewed: Yes - Physical Exam ENT: Positive for: Other (Left mandibular premolar area tooth extraction site noted. minimal gingival swelling) - ECG O2 Sat by Pulse Oximetry: 99 (RA) Pulse Ox Interpretation: Normal Medical Decision Making Medical Decision Making: Time: 127 Plan: -- Clindamycin 300 mg PO Scribe Attestation: Documented by Kristen Chatterjee, acting as a scribe for Prasanth Gilbert PA-C. Provider Scribe Attestation: All medical record entries made by the Scribe were at my direction and personally dictated by me. I have reviewed the chart and agree that the record accurately reflects my personal performance of the history, physical exam, medical decision making, and the department course for this patient. I have also personally directed, reviewed, and agree with the discharge instructions and d isposition. Disposition - Clinical Impression Clinical Impression: Toothache - Patient ED Disposition Is Patient to be Admitted: No - Disposition Referrals: [facility] [place] [Outside] Disposition: Routine/Home Disposition Time: 01:10 Condition: IMPROVED Additional Instructions: FOLLOW UP WITH YOUR DENTIST TODAY PREVIOUSLY DISCUSSED RETURN TO ED IMMEDIATELY IF SYMPTOMS WORSEN JUAN FRANCISCO ABURTO, thank you for letting us take care of you today. Your provider was Ada Tran MD and you were treated for DENTAL PAIN. The emergency medical care you received today was directed at your acute symptoms. If you were prescribed any medication, please fill it and take as directed. It may take several days for your symptoms to resolve. Return to the Emergency Department if your symptoms worsen, do not improve, or if you have any other problems. Please contact your doctor or call one of the physicians/clinics you have been referred to that are listed on the Patient Visit Information form that is included in your discharge packet. Bring any paperwork you were given at discharge with you along with any medications you are taking to your follow up visit. Our treatment cannot replace ongoing medical care by a primary care provider outside of the emergency department. Thank you for allowing the [facility] team to be part of your care today. If you had an X-Ray or CT scan: A Radiologist will review the ED reading if any change in treatment is needed we will contact you. If you had a blood, urine, or wound culture: It will take several days for the results, if any change in treatment is needed we will contact you. If you had an STI test: It will take 48 hours for the results. Please call after 1 week if you have not heard back. Prescriptions: Clindamycin [Cleocin] 300 mg PO TID #9 cap Instructions: Dental Pain (DC) Forms: [employer] [place] (Irish) Print Language: AUSTRALIAN
== END 2018-09-04 01:39 | disposition home or self-care (01) ==
LOC: H.ER 00:28
DX: K08.89 Other specified disorders of teeth and supporting structures (principal); Z88.0 Allergy status to penicillin; F20.9 Schizophrenia, unspecified

== ENCOUNTER 2018-09-04 07:18 | Emergency (ER) | payer SELFPAY ==
[2018-09-04 07:30] VITALS: RESP 18; O2SAT 99
[2018-09-04 07:31] VITALS: BMI 23.5
--- NOTE | 2018-09-04 08:13 | ED PDOC ---
HPI: Dental Pain/Injury Time Seen by Provider: 09/04/18 07:43 Chief Complaint (Provider): Dental Pain History Per: Patient History/Exam Limitations: no limitations Onset/Duration Of Symptoms: Days (x 2) Current Symptoms Are (Timing): Still Present Quality: "Pain" Additional Complaint(s): 38 year old male with no significant medical history presents to the ED for evaluation of dental pain, onset one day ago. Patient reports of having a tooth extraction done yesterday to the left lower jaw, now causing pain. Patient states he has been taking Tylenol without relief. He was seen in this ED x 6 hours ago for the same symptoms, was given a dose of Clindamycin and discharged with a prescription for a course of the same antibiotic. Patient states he will follow up with dentist today at 9:00, but would like something for the pain now. Otherwise, no trauma, fever, swelling, headache or discharge. PMD: [facility] Past Medical History Reviewed: Historical Data, Nursing Documentation, Vital Signs Vital Signs: Last Vital Signs Temp 97.5 F L 09/04/18 07:30 Pulse 77 09/04/18 07:30 Resp 18 09/04/18 07:30 BP 120/69 09/04/18 07:30 Pulse Ox 99 09/04/18 07:30 - Medical History PMH: Back Problems, Schizophrenia Denies: Diabetes, Hepatitis, HIV, HTN, Chronic Kidney Disease, Seizures, Sexually Transmitted Disease - Surgical History Surgical History: No Surg Hx - Family History Family History: States: Unknown Family Hx - Immunization History Hx Tetanus Toxoid Vaccination: No Hx Influenza Vaccination: No Hx Pneumococcal Vaccination: No - Home Medications Home Medications: Ambulatory Orders Medication Instructions Recorded Albuterol 0.083% [Albuterol 3 ml IH Q4 #100 neb 02/28/18 Sulfate 3 Ml] Nebulizer [Aeroeclipse II] 1 each MC DAILY #1 each 02/28/18 Naproxen [Naprosyn] 500 mg PO BID PRN #15 tablet 07/06/18 Clindamycin [Cleocin] 300 mg PO TID #15 cap 07/22/18 Ibuprofen [Motrin] 600 mg PO Q6 PRN #20 tab 07/22/18 traMADol [Ultram] 50 mg PO Q6H PRN #15 tab 07/26/18 Clindamycin [Cleocin] 1 tab PO QID #28 cap 07/27/18 Clindamycin [Cleocin] 300 mg PO TID #9 cap 09/04/18 Ibuprofen [Motrin] 600 mg PO TID 7 Days tab 09/04/18 - Allergies Allergies/Adverse Reactions: Allergies Allergy/AdvReac Type Severity Reaction Status Date / Time Penicillins Allergy RASH Verified 09/04/18 00:46 Review of Systems ROS Statement: Except As Marked, All Systems Reviewed And Found Negative Constitutional: Negative for: Fever, Chills ENT: Positive for: Mouth Pain (tooth pain s/p tooth extraction). Negative for: Other (numbness or tingling) Neurological: Negative for: Headache, Dizziness Physical Exam - Reviewed Nursing Documentation Reviewed: Yes Vital Signs Reviewed: Yes - Physical Exam Appears: Positive for: Non-toxic, No Acute Distress Head Exam: Positive for: ATRAUMATIC, NORMAL INSPECTION, NORMOCEPHALIC Skin: Positive for: Normal Color, Warm, Dry Eye Exam: Positive for: EOMI, Normal appearance, PERRL ENT: Positive for: Other (extracted molar #18 with clotting blood at posterior and tender gum area; (-) gross abscess or active bleeding) Cardiovascular/Chest: Positive for: Regular Rate, Rhythm. Negative for: Murmur Respiratory: Positive for: Normal Breath Sounds. Negative for: Respiratory Distress Neurologic/Psych: Positive for: Alert, applied researcher II-XII (grossly intact), Oriented (x 3). Negative for: Motor/Sensory Deficits - ECG O2 Sat by Pulse Oximetry: 99 (RA) Pulse Ox Interpretation: Normal Medical Decision Making Medical Decision Makin:54 Impression: dental pain Initial Plan: --Motrin 600 mg PO 08:25 Patient was already given a prescription for Clindamycin upon discharge after last visit. He requires no further treatment at this time and is stable for discharge. Scribe Attestation: Documented by Deonna Gibbs acting as a scribe for Christofer Vasques MD Provider Scribe Attestation: All medical record entries made by the Scribe were at my direction and personally dictated by me. I have reviewed the chart and agree that the record accurately reflects my personal performance of the history, physical exam, medical decision making, and the department course for this patient. I have also personally directed, reviewed, and agree with the discharge instructions and disposition. Disposition - Clinical Impression Clinical Impression: Pain, dental - Patient ED Disposition Is Patient to be Admitted: No - Disposition Referrals: [facility]. [facility] [Outside] Disposition: Routine/Home Disposition Time: 08:25 Condition: STABLE Additional Instructions: Go to your dentist today as you plan for 930am. Prescriptions: Ibuprofen [Motrin] 600 mg PO TID 7 Days tab Instructions: Dental Pain (DC) Print Language: AZERBAIJANI
[2018-09-04 09:00] VITALS: BP 122/79; PULSE 75; TEMP 98
== END 2018-09-04 08:55 | disposition home or self-care (01) ==
LOC: H.ER 07:18
DX: K08.89 Other specified disorders of teeth and supporting structures (principal); F20.9 Schizophrenia, unspecified; Z88.0 Allergy status to penicillin

== ENCOUNTER 2018-12-31 03:10 | Emergency (ER) | payer SELFPAY ==
[2018-12-31 03:10] VITALS: BMI 23.5
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
--- NOTE | 2018-12-31 07:35 | ED PDOC ---
- ECG O2 Sat by Pulse Oximetry: 96 Medical Decision Making Medical Decision Making: Time: 0700 --Patient endorsed to provider by Dr. Singh, with alcohol intoxication. Attempted elopement earlier with 5:2 restraints initiated. Pending clinical sobriety. Scribe Attestation: Documented by Maile Bravo, acting as a scribe for Christofer Vasques MD. Provider Scribe Attestation: All medical record entries made by the Scribe were at my direction and personally dictated by me. I have reviewed the chart and agree that the record accurately reflects my personal performance of the history, physical exam, medical decision making, and the department course for this patient. I have also personally directed, reviewed, and agree with the discharge instructions and disposition. 1500: Stable. AAOx3. Pain free. Tolerated PO. Ambulated with no issues. FU with pcp. Disposition - Clinical Impression Clinical Impression: Alcohol intoxication, Head injury, Periorbital contusion, Contusion, lips - POA Present On Arrival: Falls Or Trauma - Disposition Referrals: [facility] [Outside] Disposition: Routine/Home Disposition Time: 15:02 Condition: STABLE Instructions: Alcohol Use - When Is Drinking a Problem?, Closed Head Injury
[2018-12-31 13:44] VITALS: RESP 16
[2018-12-31 15:15] VITALS: BP 118/68; PULSE 68; TEMP 98.2; O2SAT 100
== END 2018-12-31 15:13 | disposition home or self-care (01) ==
LOC: H.ER 03:10
DX: F10.129 Alcohol abuse with intoxication, unspecified (principal); S00.10XA Contusion of unspecified eyelid and periocular area, initial encounter; S00.531A Contusion of lip, initial encounter; S09.90XA Unspecified injury of head, initial encounter; Y04.0XXA Assault by unarmed brawl or fight, initial encounter; Y92.89 Other specified places as the place of occurrence of the external cause; F20.9 Schizophrenia, unspecified; Z88.0 Allergy status to penicillin
CPT/HCPCS: 70450; 70486; 72125; 80320; 82948; 96372; 99285; J1630; J2060

== ENCOUNTER 2019-01-04 17:53 | Emergency (ER) | payer SELFPAY ==
[2019-01-04 17:54] VITALS: BMI 23.5
[2019-01-04 19:45] VITALS: BP 111/72; PULSE 74; RESP 18; TEMP 98.6; O2SAT 99
== END 2019-01-04 20:25 | disposition left against medical advice (07) ==
LOC: H.ER 17:53
DX: Z02.89 Encounter for other administrative examinations (principal)

== ENCOUNTER 2019-01-05 09:07 | Emergency (ER) | payer SELFPAY ==
[2019-01-05 09:10] VITALS: BMI 25.0
[2019-01-05 09:11] VITALS: BP 112/68; PULSE 75; RESP 17; TEMP 97.8; O2SAT 98
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
== END 2019-01-05 10:29 | disposition home or self-care (01) ==
LOC: H.ER 09:07
DX: S09.90XD Unspecified injury of head, subsequent encounter (principal); Z86.59 Personal history of other mental and behavioral disorders

== ENCOUNTER 2019-01-09 23:42 | Emergency (ER) | payer SELFPAY ==
[2019-01-09 23:42] VITALS: BMI 25.0
[2019-01-09 23:58] VITALS: BP 123/71; PULSE 86; RESP 16; TEMP 98.4; O2SAT 98
--- NOTE | 2019-01-10 00:51 | ED PDOC ---
HPI: Dental Pain/Injury Time Seen by Provider: 01/10/19 00:01 Chief Complaint (Nursing): Dental Pain Chief Complaint (Provider): Dental pain, right upper History Per: Patient History/Exam Limitations: no limitations Onset/Duration Of Symptoms: Days Current Symptoms Are (Timing): Still Present Additional Complaint(s): 38 yo male presents for evaluation of dental pain x 2 days. PT states he went to dentist today and they weren't able to see him. Pt states he took motrin and pain is now 7/10 and he cannot sleep. PT states dentist told him to come back to the office tomorrow (01/10). PT denies drainage, fever or chills. PT has been see in ER multiple times for similar complaint with similar story. Past Medical History Reviewed: Historical Data, Nursing Documentation, Vital Signs Vital Signs: Last Vital Signs Temp 98.4 F 01/09/19 23:55 Pulse 86 01/09/19 23:55 Resp 16 01/09/19 23:55 BP 123/71 01/09/19 23:55 Pulse Ox 98 01/09/19 23:55 Primary Care Provider: FAMILY PROVIDER,NO - Medical History PMH: Back Problems, Schizophrenia Denies: Diabetes, Hepatitis, HIV, HTN, Chronic Kidney Disease, Seizures, Sexually Transmitted Disease - Surgical History Surgical History: No Surg Hx - Family History Family History: States: Unknown Family Hx - Living Arrangements Living Arrangements: With Family - Social History Current smoker - smoking cessation education provided: No - Immunization History Hx Tetanus Toxoid Vaccination: No Hx Influenza Vaccination: No Hx Pneumococcal Vaccination: No - Home Medications Home Medications: Ambulatory Orders Medication Instructions Recorded Albuterol 0.083% [Albuterol 3 ml IH Q4 #100 neb 02/28/18 Sulfate 3 Ml] Nebulizer [Aeroeclipse II] 1 each MC DAILY #1 each 02/28/18 Naproxen [Naprosyn] 500 mg PO BID PRN #15 tablet 07/06/18 Clindamycin [Cleocin] 300 mg PO TID #15 cap 07/22/18 Ibuprofen [Motrin] 600 mg PO Q6 PRN #20 tab 07/22/18 traMADol [Ultram] 50 mg PO Q6H PRN #15 tab 07/26/18 Clindamycin [Cleocin] 1 tab PO QID #28 cap 07/27/18 Clindamycin [Cleocin] 300 mg PO TID #9 cap 09/04/18 Ibuprofen [Motrin] 600 mg PO TID 7 Days tab 09/04/18 - Allergies Allergies/Adverse Reactions: Allergies Allergy/AdvReac Type Severity Reaction Status Date / Time Penicillins Allergy RASH Verified 01/04/19 19:45 Review of Systems ROS Statement: Except As Marked, All Systems Reviewed And Found Negative Constitutional: Negative for: Fever, Chills Skin: Positive for: Other Physical Exam - Reviewed Nursing Documentation Reviewed: Yes Vital Signs Reviewed: Yes - Physical Exam Appears: Positive for: Well, Non-toxic, No Acute Distress Head Exam: Positive for: ATRAUMATIC, NORMAL INSPECTION, NORMOCEPHALIC Skin: Positive for: Normal Color, Warm, DRY Eye Exam: Positive for: Normal appearance ENT: Positive for: Other ((+) right upper, dental decay ). Negative for: Normal ENT Inspection Neck: Positive for: Normal Respiratory: Negative for: Decreased Breath Sounds, Accessory Muscle Use, Respiratory Distress Back: Positive for: Normal Inspection Extremity: Positive for: Normal ROM Neurological/Psych: Positive for: Awake, Alert - ECG O2 Sat by Pulse Oximetry: 98 Medical Decision Making Medical Decision Making: Discussed f/u with dentist. Pain medication in ER. No RX Disposition - Clinical Impression Clinical Impression: Dental decay - Patient ED Disposition Is Patient to be Admitted: No - Disposition Disposition: Routine/Home Disposition Time: 00:49 Condition: GOOD Instructions: Dental Pain Print Language: FIJIAN
== END 2019-01-10 00:56 | disposition home or self-care (01) ==
LOC: H.ER 23:42
DX: K02.9 Dental caries, unspecified (principal); F20.9 Schizophrenia, unspecified

== ENCOUNTER 2019-01-12 01:59 | Emergency (ER) | payer SELFPAY ==
[2019-01-12 01:59] VITALS: BMI 25.0
--- NOTE | 2019-01-12 03:34 | ED PDOC ---
HPI: Dental Pain/Injury Time Seen by Provider: 01/12/19 02:20 Chief Complaint (Nursing): Dental Pain Chief Complaint (Provider): Dental pain - Continued History Per: Patient History/Exam Limitations: no limitations Onset/Duration Of Symptoms: Days Current Symptoms Are (Timing): Still Present Additional Complaint(s): 38 yo male returns to ER for evaluation of dental pain. PT states that he did go to dentist since previous visit but did not fill Rx. Pt states he woke up with pain, took tylenol and there was no improvement so he came to the ER. Past Medical History Reviewed: Historical Data, Nursing Documentation, Vital Signs Vital Signs: Last Vital Signs Temp 97.7 F 01/12/19 02:20 Pulse 74 01/12/19 02:20 Resp 18 01/12/19 02:20 BP 113/65 01/12/19 02:20 Pulse Ox 97 01/12/19 02:20 Primary Care Provider: FAMILY PROVIDER,NO - Medical History PMH: Back Problems, Schizophrenia Denies: Diabetes, Hepatitis, HIV, HTN, Chronic Kidney Disease, Seizures, Sexually Transmitted Disease - Surgical History Surgical History: No Surg Hx - Family History Family History: States: Unknown Family Hx - Living Arrangements Living Arrangements: With Family - Immunization History Hx Tetanus Toxoid Vaccination: No Hx Influenza Vaccination: No Hx Pneumococcal Vaccination: No - Home Medications Home Medications: Ambulatory Orders Medication Instructions Recorded Albuterol 0.083% [Albuterol 3 ml IH Q4 #100 neb 02/28/18 Sulfate 3 Ml] Nebulizer [Aeroeclipse II] 1 each MC DAILY #1 each 02/28/18 Naproxen [Naprosyn] 500 mg PO BID PRN #15 tablet 07/06/18 Clindamycin [Cleocin] 300 mg PO TID #15 cap 07/22/18 Ibuprofen [Motrin] 600 mg PO Q6 PRN #20 tab 07/22/18 traMADol [Ultram] 50 mg PO Q6H PRN #15 tab 07/26/18 Clindamycin [Cleocin] 1 tab PO QID #28 cap 07/27/18 Clindamycin [Cleocin] 300 mg PO TID #9 cap 09/04/18 Ibuprofen [Motrin] 600 mg PO TID 7 Days tab 09/04/18 - Allergies Allergies/Adverse Reactions: Allergies Allergy/AdvReac Type Severity Reaction Status Date / Time Penicillins Allergy RASH Verified 01/04/19 19:45 Review of Systems ROS Statement: Except As Marked, All Systems Reviewed And Found Negative Constitutional: Negative for: Fever, Chills ENT: Positive for: Other Cardiovascular: Negative for: Chest Pain, Palpitations Respiratory: Negative for: Cough, Shortness of Breath Gastrointestinal: Negative for: Nausea, Vomiting, Abdominal Pain, Diarrhea Genitourinary Male: Negative for: Dysuria, Frequency, Incontinence Physical Exam - Reviewed Nursing Documentation Reviewed: Yes Vital Signs Reviewed: Yes - Physical Exam Appears: Positive for: Well, Non-toxic, No Acute Distress Head Exam: Positive for: ATRAUMATIC, NORMAL INSPECTION, NORMOCEPHALIC Skin: Positive for: Normal Color, Warm, DRY Eye Exam: Positive for: Normal appearance ENT: Negative for: Normal ENT Inspection ((+) left lower dental decay ) Neck: Positive for: Normal, Painless ROM Cardiovascular/Chest: Negative for: Bradycardia, Tachycardia Respiratory: Negative for: Accessory Muscle Use, Respiratory Distress Back: Positive for: Normal Inspection Extremity: Positive for: Normal ROM Neurological/Psych: Positive for: Awake, Alert, Normal Tone - ECG O2 Sat by Pulse Oximetry: 97 Disposition - Clinical Impression Clinical Impression: Pain, dental - Patient ED Disposition Is Patient to be Admitted: No Counseled Patient/Family Regarding: Diagnosis, Need For Followup - Disposition Disposition: Routine/Home Disposition Time: 03:38 Condition: GOOD Instructions: Dental Pain
[2019-01-12 03:57] VITALS: BP 109/73; PULSE 73; RESP 16; TEMP 98.1; O2SAT 98
== END 2019-01-12 04:29 | disposition home or self-care (01) ==
LOC: H.ER 01:59
DX: K08.89 Other specified disorders of teeth and supporting structures (principal); Z88.0 Allergy status to penicillin